=== PATIENT | male | born 1940 | race Caucasian/White ===

== ENCOUNTER 2018-04-18 10:22 | Observation (INO) | payer OTHER ==
--- OUTSIDE RECORDS SUMMARY | 2018-04-18 10:32 | XMS REPORT | Clinical Summary ---
:1940 Author Organization [facility] Address [address] [place] [address] Care Team Providers Name Role Phone Miol Singer MD Primary Care Provider Allergies No Known Allergies Current Medications Prescription Sig. Disp. Refills Start End Date Status Date fluticasone (FLONASE) 50 2 sprays by Active mcg/actuation nasal Each Nare 7 spray route daily. simvastatin (ZOCOR) 20 Take 20 mg Active MG tablet by mouth 7 nightly. ibuprofen (ADVIL,MOTRIN) Take 400 mg Active 200 MG tablet by mouth every 6 (six) hours as needed for mild pain. loratadine (CLARITIN) 10 Take 10 mg Active mg tablet by mouth daily. losartan (COZAAR) 50 MG Take 1 30 tablet 01/17/20 Active tablet tablet (50 8 19 mg total) by mouth daily. metoprolol tartrate Take 1 60 tablet 01/17/20 Active (LOPRESSOR) 50 mg tablet tablet (50 8 19 mg total) by mouth 2 (two) times a day. traMADol (ULTRAM) 50 mg Take 50 mg Active tablet by mouth every 6 (six) hours as needed for moderate pain. hydroCHLOROthiazide Take 1 30 tablet 02/18/20 Active (HYDRODIURIL) 25 MG tablet (25 8 19 tablet mg total) by mouth daily. amLODIPine (NORVASC) 5 Take 5 mg by 01/17/20 Discontinued mg tablet mouth daily. 7 18 carvedilol (COREG) 3.125 12/30/19 Discontinued MG tablet 7 18 clopidogrel (PLAVIX) 75 Take 75 mg 01/17/20 Discontinued mg tablet by mouth 7 18 daily. HYDROcodone-acetaminophe 12/30/19 Discontinued n (NORCO) 5-325 mg per 7 18 tablet metoprolol succinate XL 12/30/19 Discontinued (TOPROL-XL) 50 mg 24 hr 7 18 tablet metoprolol succinate XL Take 100 mg 01/17/20 Discontinued (TOPROL-XL) 100 mg 24 hr by mouth 7 18 tablet daily. losartan-hydrochlorothia Take 1 01/17/20 Discontinued zide (HYZAAR) 100-12.5 tablet by 18 mg per tablet mouth daily. ascorbic acid, vitamin Take 500 mg 01/17/20 Discontinued C, (VITAMIN C) 500 MG by mouth 2 18 tablet (two) times a day. multivitamins & Take by 01/17/20 Discontinued minerals-ferrous mouth daily. 18 gluconate 9 mg iron/15 1 tablet mL liquid daily traMADol (ULTRAM) 50 mg Take 1 30 tablet 0 01/27/20 tablet tablet (50 8 18 mg total) by mouth every 8 (eight) hours as needed for moderate pain for up to 10 days. amIODarone (PACERONE) Take 1 30 tablet 0 02/16/20 200 MG tablet tablet (200 8 18 mg total) by mouth daily for 30 days. hydroCHLOROthiazide Take 1 30 tablet 11 02/18/20 Discontinued (HYDRODIURIL) 25 MG tablet (25 8 18 tablet mg total) by mouth daily. furosemide (LASIX) 40 mg Take 1 14 tablet 0 01/31/20 tablet tablet (40 8 18 mg total) by mouth daily for 14 days. potassium chloride Take 2 28 capsule 0 01/31/20 Discontinued (MICRO-K) 10 MEQ CR capsules (20 8 18 capsule mEq total) by mouth daily for 14 days. 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 Aortic aneurysm without rupture (HCC) 06/28/2017 Essential hypertension 06/28/2017 Encounters Date Type Specialty Care Team Description 02/20/2018 Office Visit Cardiovascular Amadou, s/p Extent I TAAA Gladys Villegas, repair with replacment MD of descending aorta & reimplantation of T8-9 intercostal arteries (Primary Dx) 02/09/2018 Refill Cardiovascular Ines Stiles, PAC 01/30/2018 Office Visit Cardiology Margarette Alicia, s/p 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 & reimplantation of T8-9 intercostal arteries 12/27/2017 Lab Lab Margarette Alicia, Essential hypertension; Thoracic aortic aneurysm without rupture 12/27/2017 Office Visit Cardiology Margarette Alicia, Thoracic aortic aneurysm without rupture (Primary Dx); Essential hypertension 06/28/2017 Office Visit Cardiology Margarette Alicia, Aortic aneurysm without rupture, unspecified portion of aorta (Primary Dx); Essential hypertension after 04/17/2017 Family History Medical History Relation Name Comments Anuerysm Father Heart failure Father Heart failure Mother Relation Name Status Comments Father Mother Social History Tobacco Use Types Packs/Day Years Used Date Never Smoker Smokeless Tobacco: Never Used Alcohol Use Drinks/Week oz/Week Comments Yes 1 Glasses of wine 0.6 Sex Assigned at Date Recorded Not on file Last Filed Vital Signs Vital Sign Reading Time Taken Blood Pressure 170/79 02/20/2018 9:14 AM CDT Pulse 49 02/20/2018 9:14 AM CDT Temperature 37 C (98.6 F) 02/20/2018 9:14 AM CDT Respiratory Rate 18 01/16/2018 7:24 AM CDT Oxygen Saturation 94% 01/16/2018 7:24 AM CDT Inhaled Oxygen Concentration - - Weight 93.4 kg (206 lb) 02/20/2018 9:14 AM CDT Height 177.8 cm (5' 10") 02/20/2018 9:14 AM CDT Body Mass Index 29.56 02/20/2018 9:14 AM CDT Plan of Treatment Date Type Specialty Care Team Description 05/02/2018 Office Visit Cardiology Margarette Alicia MD [address] [place] [address] [phone] 06/20/2018 Office Visit Cardiology Margarette Alicia MD [address] [place] [address] [phone] Health Maintenance Due Date Last Done Comments SHINGRIX VACCINE (#1) 1988 ZOSTER VACCINE 1998 PNEUMOCOCCAL POLYSACCHARIDE VACCINE AGE 65 AND OVER 10/16/2003 PNEUMOCOCCAL-13 10/16/2003 INFLUENZA VACCINE 02/15/2018 Implants Implanted Type Area Territory Sales Representative Device Expiration Model / Identifier Date Serial / Lot Clip [facility] Hemoclip Plus W/ Tape Ti Lg - [id number] Medical N/A: TELEFLEX [id number] / Implanted: 01/04/2018 (Quantity not on file) Clips for N/A MEDICAL / Internal Use 7mm Balloon, 3 Fr X 27 Cm [place] Occlusion Catheter Discontinued Cat#, See New Cat# [id number] Occlusion N/A: [id number] 02/11/2023 [id number] / Implanted: Qty: 3 on 01/04/2018 by Gladys Rosas MD Device N/ A [employer]. / [id number] Haines Perph Vasclr Ptfe 1.2x10cm 1.65mm - [id number] Vascular N/A: BARD PERIPHERAL 10/12/2022 [id number] / Implanted: 01/04/2018 (Quantity not on file) Graft N/A VASCULAR / [id number] Graft Vasclr Gelweave Ante-Jagdish Perfsn Side [id number] 26x8mm - [id number] Vascular N/A: SULZER VASCUTEK 04/16/2022 [id number] / Implanted: 01/04/2018 (Quantity not on file) Graft N/A / [id number] Haines Perph Vasclr Ptfe 1.2x10cm 1.65mm - [id number] Vascular N/A: BARD PERIPHERAL 08/14/2022 [id number] / Implanted: 01/04/2018 (Quantity not on file) Graft N/A VASCULAR / [id number] Procedures Procedure Name Priority Date/Time Associated Diagnosis Comments ECG 12-LEAD Routine 01/30/2018 2:37 Hospital discharge Results for this PM CDT follow-up procedure are in the results section. ZZESTIMATED GFR STAT 01/16/2018 4:29 Results for this AM CDT procedure are in the results section. PHOSPHORUS LEVEL STAT 01/16/2018 4:29 Results for this AM CDT procedure are in the results section. MAGNESIUM LEVEL STAT 01/16/2018 4:29 Results for this AM CDT procedure are in the results section. BASIC METABOLIC PANEL STAT 01/16/2018 4:29 Results for this AM CDT procedure are in the results section. HC COMPLETE BLD COUNT Routine 01/15/2018 7:19 Results for this W/AUTO DIFF AM CDT procedure are in the results section. ZZESTIMATED GFR Routine 01/15/2018 4:00 Results for this AM CDT procedure are in the results section. BASIC METABOLIC PANEL Routine 01/15/2018 4:00 Results for this AM CDT procedure are in the results section. ZZESTIMATED GFR Routine 01/14/2018 4:00 Results for this AM CDT procedure are in the results section. COMPREHENSIVE METABOLIC Routine 01/14/2018 4:00 Results for this PANEL AM CDT procedure are in the results section. PROTHROMBIN TIME WITH Routine 01/14/2018 4:00 Results for this INR AM CDT procedure are in the results section. MAGNESIUM LEVEL Routine 01/14/2018 4:00 Results for this AM CDT procedure are in the results section. IONIZED CALCIUM Routine 01/14/2018 4:00 Results for this AM CDT procedure are in the results section. HC COMPLETE BLD COUNT Routine 01/14/2018 4:00 Results for this W/AUTO DIFF AM CDT procedure are in the results section. ECG 12-LEAD Routine 01/13/2018 2:35 Results for this PM CDT procedure are in the results section. XR CHEST 1 VW PORTABLE Routine 01/13/2018 2:26 Results for this PM CDT procedure are in the results section. ZZESTIMATED GFR Routine 01/13/2018 5:22 Results for this AM CDT procedure are in the results section. PROTHROMBIN TIME WITH Routine 01/13/2018 5:22 Results for this INR AM CDT procedure are in the results section. MAGNESIUM LEVEL Routine 01/13/2018 5:22 Results for this AM CDT procedure are in the results section. IONIZED CALCIUM Routine 01/13/2018 5:22 Results for this AM CDT procedure are in the results section. HC COMPLETE BLD COUNT Routine 01/13/2018 5:22 Results for this W/AUTO DIFF AM CDT procedure are in the results section. BASIC METABOLIC PANEL Routine 01/13/2018 5:22 Results for this AM CDT procedure are in the results section. POC GLUCOSE Routine 01/12/2018 8:33 Results for this PM CDT procedure are in the results section. POC GLUCOSE Routine 01/12/2018 4:52 Results for this PM CDT procedure are in the results section. POC GLUCOSE Routine 01/12/2018 11:38 Results for this AM CDT procedure are in the results section. POC GLUCOSE Routine 01/12/2018 7:26 Results for this AM CDT procedure are in the results section. ZZESTIMATED GFR Routine 01/12/2018 5:45 Results for this AM CDT procedure are in the results section. B NATRIURETIC PEPTIDE Routine 01/12/2018 5:45 Results for this AM CDT procedure are in the results section. PROTHROMBIN TIME WITH Routine 01/12/2018 5:45 Results for this INR AM CDT procedure are in the results section. MAGNESIUM LEVEL Routine 01/12/2018 5:45 Results for this AM CDT procedure are in the results section. IONIZED CALCIUM Routine 01/12/2018 5:45 Results for this AM CDT procedure are in the results section. HC COMPLETE BLD COUNT Routine 01/12/2018 5:45 Results for this W/AUTO DIFF AM CDT procedure are in the results section. BASIC METABOLIC PANEL Routine 01/12/2018 5:45 Results for this AM CDT procedure are in the results section. POC GLUCOSE Routine 01/11/2018 10:25 Results for this PM CDT procedure are in the results section. POC GLUCOSE Routine 01/11/2018 5:33 Results for this PM CDT procedure are in the results section. POC GLUCOSE Routine 01/11/2018 11:55 Results for this AM CDT procedure are in the results section. ZZESTIMATED GFR Routine 01/11/2018 5:30 Results for this AM CDT procedure are in the results section. HC COMPLETE BLD COUNT Routine 01/11/2018 5:30 Results for this W/AUTO DIFF AM CDT procedure are in the results section. PHOSPHORUS LEVEL Routine 01/11/2018 5:30 Results for this AM CDT procedure are in the results section. MAGNESIUM LEVEL Routine 01/11/2018 5:30 Results for this AM CDT procedure are in the results section. BASIC METABOLIC PANEL Routine 01/11/2018 5:30 Results for this AM CDT procedure are in the results section. POC GLUCOSE Routine 01/10/2018 9:29 Results for this PM CDT procedure are in the results section. US CHEST Routine 01/10/2018 6:45 Results for this PM CDT procedure are in the results section. POC GLUCOSE Routine 01/10/2018 4:45 Results for this PM CDT procedure are in the results section. POC GLUCOSE Routine 01/10/2018 11:54 Results for this AM CDT procedure are in the results section. ZZESTIMATED GFR Routine 01/10/2018 4:45 Results for this AM CDT procedure are in the results section. BASIC METABOLIC PANEL Routine 01/10/2018 4:45 Results for this AM CDT procedure are in the results section. B NATRIURETIC PEPTIDE Routine 01/10/2018 4:45 Results for this AM CDT procedure are in the results section. POC GLUCOSE Routine 01/09/2018 9:08 Results for this PM CDT procedure are in the results section. CV ECHO 2D FOLLOW UP OR Routine 01/09/2018 2:54 Results for this LIMITED STUDY PM CDT procedure are in the results section. POC GLUCOSE Routine 01/09/2018 11:53 Results for this AM CDT procedure are in the results section. ECG 12-LEAD Routine 01/09/2018 10:56 Results for this AM CDT procedure are in the results section. POC GLUCOSE Routine 01/09/2018 8:07 Results for this AM CDT procedure are in the results section. XR CHEST 1 VW PORTABLE STAT 01/09/2018 5:45 Results for this AM CDT procedure are in the results section. CBC HEMOGRAM Routine 01/09/2018 3:15 Results for this AM CDT procedure are in the results section. IONIZED CALCIUM Routine 01/09/2018 3:10 Results for this AM CDT procedure are in the results section. PHOSPHORUS LEVEL Routine 01/09/2018 3:10 Results for this AM CDT procedure are in the results section. MAGNESIUM LEVEL Routine 01/09/2018 3:10 Results for this AM CDT procedure are in the results section. ZZESTIMATED GFR Routine 01/09/2018 3:10 Results for this AM CDT procedure are in the results section. BASIC METABOLIC PANEL Routine 01/09/2018 3:10 Results for this AM CDT procedure are in the results section. POC GLUCOSE Routine 01/08/2018 9:21 Results for this PM CDT procedure are in the results section. POC GLUCOSE Routine 01/08/2018 5:29 Results for this PM CDT procedure are in the results section. POC GLUCOSE Routine 01/08/2018 12:10 Results for this PM CDT procedure are in the results section. POC GLUCOSE Routine 01/08/2018 7:30 Results for this AM CDT procedure are in the results section. XR CHEST 1 VW PORTABLE Routine 01/08/2018 5:18 Results for this AM CDT procedure are in the results section. POC GLUCOSE Routine 01/08/2018 4:26 Results for this AM CDT procedure are in the results section. LINE/DRAIN REMOVAL Routine 01/08/2018 4:04 s/p Extent I TAAA Results for this AM CDT repair with procedure are in replacment of the results descending aorta & section. reimplantation of T8-9 intercostal arteries ZZESTIMATED GFR Routine 01/08/2018 4:00 Results for this AM CDT procedure are in the results section. PROTHROMBIN TIME WITH Routine 01/08/2018 4:00 Results for this INR AM CDT procedure are in the results section. PHOSPHORUS LEVEL Routine 01/08/2018 4:00 Results for this AM CDT procedure are in the results section. PARTIAL THROMBOPLASTIN Routine 01/08/2018 4:00 Results for this TIME (PTT) AM CDT procedure are in the results section. MAGNESIUM LEVEL Routine 01/08/2018 4:00 Results for this AM CDT procedure are in the results section. IONIZED CALCIUM Routine 01/08/2018 4:00 Results for this AM CDT procedure are in the results section. CBC HEMOGRAM Routine 01/08/2018 4:00 Results for this AM CDT procedure are in the results section. BASIC METABOLIC PANEL Routine 01/08/2018 4:00 Results for this AM CDT procedure are in the results section. POC GLUCOSE Routine 01/08/2018 12:06 Results for this AM CDT procedure are in the results section. PHOSPHORUS LEVEL Routine 01/07/2018 9:40 Results for this PM CDT procedure are in the results section. MAGNESIUM LEVEL Routine 01/07/2018 9:40 Results for this PM CDT procedure are in the results section. POTASSIUM LEVEL Routine 01/07/2018 9:40 Results for this PM CDT procedure are in the results section. POC GLUCOSE Routine 01/07/2018 7:33 Results for this PM CDT procedure are in the results section. POC GLUCOSE Routine 01/07/2018 4:00 Results for this PM CDT procedure are in the results section. POC GLUCOSE Routine 01/07/2018 11:51 Results for this AM CDT procedure are in the results section. POC GLUCOSE Routine 01/07/2018 7:23 Results for this AM CDT procedure are in the results section. XR CHEST 1 VW PORTABLE STAT 01/07/2018 5:18 Results for this AM CDT procedure are in the results section. POC GLUCOSE Routine 01/07/2018 3:48 Results for this AM CDT procedure are in the results section. TYPE AND SCREEN Routine 01/07/2018 3:00 Results for this AM CDT procedure are in the results section. PROTHROMBIN TIME WITH STAT 01/07/2018 3:00 Results for this INR AM CDT procedure are in the results section. PARTIAL THROMBOPLASTIN STAT 01/07/2018 3:00 Results for this TIME (PTT) AM CDT procedure are in the results section. CBC HEMOGRAM STAT 01/07/2018 3:00 Results for this AM CDT procedure are in the results section. ZZESTIMATED GFR STAT 01/07/2018 2:17 Results for this AM CDT procedure are in the results section. PHOSPHORUS LEVEL STAT 01/07/2018 2:17 Results for this AM CDT procedure are in the results section. MAGNESIUM LEVEL STAT 01/07/2018 2:17 Results for this AM CDT procedure are in the results section. IONIZED CALCIUM STAT 01/07/2018 2:17 Results for this AM CDT procedure are in the results section. BASIC METABOLIC PANEL STAT 01/07/2018 2:17 Results for this AM CDT procedure are in the results section. POC GLUCOSE Routine 01/07/2018 12:11 Results for this AM CDT procedure are in the results section. POC GLUCOSE Routine 01/06/2018 7:53 Results for this PM CDT procedure are in the results section. POC GLUCOSE Routine 01/06/2018 3:44 Results for this PM CDT procedure are in the results section. POC GLUCOSE Routine 01/06/2018 11:22 Results for this AM CDT procedure are in the results section. ECG 12-LEAD STAT 01/06/2018 10:32 Results for this AM CDT procedure are in the results section. PHOSPHORUS LEVEL Routine 01/06/2018 10:15 Results for this AM CDT procedure are in the results section. POTASSIUM LEVEL Routine 01/06/2018 10:15 Results for this AM CDT procedure are in the results section. MAGNESIUM LEVEL Routine 01/06/2018 10:15 Results for this AM CDT procedure are in the results section. POC GLUCOSE Routine 01/06/2018 7:23 Results for this AM CDT procedure are in the results section. ARTERIAL BLOOD GAS STAT 01/06/2018 6:45 Results for this AM CDT procedure are in the results section. ECG 12-LEAD Routine 01/06/2018 5:34 Results for this AM CDT procedure are in the results section. XR CHEST 1 VW PORTABLE Routine 01/06/2018 5:00 Results for this AM CDT procedure are in the results section. POC GLUCOSE Routine 01/06/2018 4:20 Results for this AM CDT procedure are in the results section. ZZESTIMATED GFR Routine 01/06/2018 1:45 Results for this AM CDT procedure are in the results section. PARTIAL THROMBOPLASTIN Routine 01/06/2018 1:45 Results for this TIME (PTT) AM CDT procedure are in the results section. PROTHROMBIN TIME WITH Routine 01/06/2018 1:45 Results for this INR AM CDT procedure are in the results section. IONIZED CALCIUM Routine 01/06/2018 1:45 Results for this AM CDT procedure are in the results section. PHOSPHORUS LEVEL Routine 01/06/2018 1:45 Results for this AM CDT procedure are in the results section. MAGNESIUM LEVEL Routine 01/06/2018 1:45 Results for this AM CDT procedure are in the results section. BASIC METABOLIC PANEL Routine 01/06/2018 1:45 Results for this AM CDT procedure are in the results section. POC GLUCOSE Routine 01/06/2018 1:39 Results for this AM CDT procedure are in the results section. HC COMPLETE BLD COUNT Routine 01/06/2018 1:15 Results for this W/AUTO DIFF AM CDT procedure are in the results section. POC GLUCOSE Routine 01/05/2018 8:17 Results for this PM CDT procedure are in the results section. POC GLUCOSE Routine 01/05/2018 3:44 Results for this PM CDT procedure are in the results section. POC GLUCOSE Routine 01/05/2018 12:15 Results for this PM CDT procedure are in the results section. CT ANGIOGRAM CHEST W WO STAT 01/05/2018 9:40 Results for this CONTRAST AND ABDOMEN W AM CDT procedure are in WO CONTRAST the results section. POC GLUCOSE Routine 01/05/2018 7:34 Results for this AM CDT procedure are in the results section. XR CHEST 1 VW PORTABLE Routine 01/05/2018 4:55 Results for this AM CDT procedure are in the results section. O2 SATURATION, VENOUS Routine 01/05/2018 4:15 Results for this AM CDT procedure are in the results section. POC GLUCOSE Routine 01/05/2018 4:11 Results for this AM CDT procedure are in the results section. ARTERIAL BLOOD GAS Routine 01/05/2018 4:10 Results for this AM CDT procedure are in the results section. ZZESTIMATED GFR Routine 01/05/2018 2:10 Results for this AM CDT procedure are in the results section. IONIZED CALCIUM, Routine 01/05/2018 2:10 Results for this ARTERIAL AM CDT procedure are in the results section. PARTIAL THROMBOPLASTIN Routine 01/05/2018 2:10 Results for this TIME (PTT) AM CDT procedure are in the results section. PROTHROMBIN TIME WITH Routine 01/05/2018 2:10 Results for this INR AM CDT procedure are in the results section. PHOSPHORUS LEVEL Routine 01/05/2018 2:10 Results for this AM CDT procedure are in the results section. MAGNESIUM LEVEL Routine 01/05/2018 2:10 Results for this AM CDT procedure are in the results section. BASIC METABOLIC PANEL Routine 01/05/2018 2:10 Results for this AM CDT procedure are in the results section. HC COMPLETE BLD COUNT Routine 01/05/2018 2:10 Results for this W/AUTO DIFF AM CDT procedure are in the results section. ARTERIAL BLOOD GAS Routine 01/05/2018 2:10 Results for this AM CDT procedure are in the results section. POC GLUCOSE Routine 01/05/2018 12:13 Results for this AM CDT procedure are in the results section. POC GLUCOSE Routine 01/04/2018 11:25 Results for this PM CDT procedure are in the results section. XR CHEST 1 VW PORTABLE Routine 01/04/2018 9:43 Results for this PM CDT procedure are in the results section. ECG 12-LEAD Routine 01/04/2018 9:19 Results for this PM CDT procedure are in the results section. IONIZED CALCIUM, Routine 01/04/2018 8:40 Results for this ARTERIAL PM CDT procedure are in the results section. ZZESTIMATED GFR Routine 01/04/2018 8:40 Results for this PM CDT procedure are in the results section. ARTERIAL BLOOD GAS Routine 01/04/2018 8:40 Results for this PM CDT procedure are in the results section. PARTIAL THROMBOPLASTIN Routine 01/04/2018 8:40 Results for this TIME (PTT) PM CDT procedure are in the results section. PROTHROMBIN TIME WITH Routine 01/04/2018 8:40 Results for this INR PM CDT procedure are in the results section. PHOSPHORUS LEVEL Routine 01/04/2018 8:40 Results for this PM CDT procedure are in the results section. MAGNESIUM LEVEL Routine 01/04/2018 8:40 Results for this PM CDT procedure are in the results section. HC COMPLETE BLD COUNT Routine 01/04/2018 8:40 Results for this W/AUTO DIFF PM CDT procedure are in the results section. BASIC METABOLIC PANEL Routine 01/04/2018 8:40 Results for this PM CDT procedure are in the results section. GLUCOSE LEVEL, SYRINGE STAT 01/04/2018 7:40 Results for this PM CDT procedure are in the results section. IONIZED CALCIUM, STAT 01/04/2018 7:40 Results for this ARTERIAL PM CDT procedure are in the results section. HEMOGLOBIN, SYRINGE STAT 01/04/2018 7:40 Results for this PM CDT procedure are in the results section. POTASSIUM, SYRINGE STAT 01/04/2018 7:40 Results for this PM CDT procedure are in the results section. SODIUM LEVEL, SYRINGE STAT 01/04/2018 7:40 Results for this PM CDT procedure are in the results section. ARTERIAL BLOOD GAS, STAT 01/04/2018 7:40 Results for this CORRECTED PM CDT procedure are in the results section. TRANSFUSE RED BLOOD Routine 01/04/2018 7:04 CELLS PM CDT TRANSFUSE RED BLOOD Routine 01/04/2018 6:43 CELLS PM CDT FIBRINOGEN STAT 01/04/2018 6:31 Results for this PM CDT procedure are in the results section. PROTHROMBIN TIME WITH STAT 01/04/2018 6:31 Results for this INR PM CDT procedure are in the results section. PLATELET COUNT STAT 01/04/2018 6:31 Results for this PM CDT procedure are in the results section. GLUCOSE LEVEL, SYRINGE STAT 01/04/2018 6:31 Results for this PM CDT procedure are in the results section. IONIZED CALCIUM, STAT 01/04/2018 6:31 Results for this ARTERIAL PM CDT procedure are in the results section. HEMOGLOBIN, SYRINGE STAT 01/04/2018 6:31 Results for this PM CDT procedure are in the results section. SODIUM LEVEL, SYRINGE STAT 01/04/2018 6:31 Results for this PM CDT procedure are in the results section. POTASSIUM, SYRINGE STAT 01/04/2018 6:31 Results for this PM CDT procedure are in the results section. ARTERIAL BLOOD GAS, STAT 01/04/2018 6:31 Results for this CORRECTED PM CDT procedure are in the results section. TRANSFUSE Routine 01/04/2018 6:20 CRYOPRECIPITATE PM CDT TRANSFUSE Routine 01/04/2018 6:19 CRYOPRECIPITATE PM CDT TRANSFUSE Routine 01/04/2018 6:17 CRYOPRECIPITATE PM CDT TRANSFUSE Routine 01/04/2018 6:12 CRYOPRECIPITATE PM CDT PLATELET COUNT STAT 01/04/2018 5:36 Results for this PM CDT procedure are in the results section. FIBRINOGEN STAT 01/04/2018 5:36 Results for this PM CDT procedure are in the results section. PROTHROMBIN TIME WITH STAT 01/04/2018 5:36 Results for this INR PM CDT procedure are in the results section. GLUCOSE LEVEL, SYRINGE STAT 01/04/2018 5:36 Results for this PM CDT procedure are in the results section. IONIZED CALCIUM, STAT 01/04/2018 5:36 Results for this ARTERIAL PM CDT procedure are in the results section. HEMOGLOBIN, SYRINGE STAT 01/04/2018 5:36 Results for this PM CDT procedure are in the results section. POTASSIUM, SYRINGE STAT 01/04/2018 5:36 Results for this PM CDT procedure are in the results section. SODIUM LEVEL, SYRINGE STAT 01/04/2018 5:36 Results for this PM CDT procedure are in the results section. ARTERIAL BLOOD GAS, STAT 01/04/2018 5:36 Results for this CORRECTED PM CDT procedure are in the results section. TRANSFUSE FRESH FROZEN Routine 01/04/2018 5:09 PLASMA PM CDT TRANSFUSE FRESH FROZEN Routine 01/04/2018 5:09 PLASMA PM CDT PLATELET COUNT STAT 01/04/2018 5:06 Results for this PM CDT procedure are in the results section. FIBRINOGEN STAT 01/04/2018 5:06 Results for this PM CDT procedure are in the results section. PROTHROMBIN TIME WITH STAT 01/04/2018 5:06 Results for this INR PM CDT procedure are in the results section. GLUCOSE LEVEL, SYRINGE STAT 01/04/2018 5:06 Results for this PM CDT procedure are in the results section. IONIZED CALCIUM, STAT 01/04/2018 5:06 Results for this ARTERIAL PM CDT procedure are in the results section. HEMOGLOBIN, SYRINGE STAT 01/04/2018 5:06 Results for this PM CDT procedure are in the results section. POTASSIUM, SYRINGE STAT 01/04/2018 5:06 Results for this PM CDT procedure are in the results section. SODIUM LEVEL, SYRINGE STAT 01/04/2018 5:06 Results for this PM CDT procedure are in the results section. ARTERIAL BLOOD GAS, STAT 01/04/2018 5:06 Results for this CORRECTED PM CDT procedure are in the results section. TRANSFUSE FRESH FROZEN Routine 01/04/2018 4:56 PLASMA PM CDT TRANSFUSE FRESH FROZEN Routine 01/04/2018 4:54 PLASMA PM CDT TRANSFUSE PLATELETS Routine 01/04/2018 4:48 PM CDT TRANSFUSE PLATELETS Routine 01/04/2018 4:48 PM CDT TRANSFUSE PLATELETS Routine 01/04/2018 4:37 PM CDT TRANSFUSE PLATELETS Routine 01/04/2018 4:36 PM CDT PROTHROMBIN TIME WITH STAT 01/04/2018 4:35 Results for this INR PM CDT procedure are in the results section. PLATELET COUNT STAT 01/04/2018 4:35 Results for this PM CDT procedure are in the results section. FIBRINOGEN STAT 01/04/2018 4:35 Results for this PM CDT procedure are in the results section. GLUCOSE LEVEL, SYRINGE STAT 01/04/2018 4:35 Results for this PM CDT procedure are in the results section. HEMOGLOBIN, SYRINGE STAT 01/04/2018 4:35 Results for this PM CDT procedure are in the results section. IONIZED CALCIUM, STAT 01/04/2018 4:35 Results for this ARTERIAL PM CDT procedure are in the results section. POTASSIUM, SYRINGE STAT 01/04/2018 4:35 Results for this PM CDT procedure are in the results section. SODIUM LEVEL, SYRINGE STAT 01/04/2018 4:35 Results for this PM CDT procedure are in the results section. ARTERIAL BLOOD GAS, STAT 01/04/2018 4:35 Results for this CORRECTED PM CDT procedure are in the results section. TRANSFUSE PLATELETS Routine 01/04/2018 4:31 PM CDT IONIZED CALCIUM, STAT 01/04/2018 4:23 Results for this ARTERIAL PM CDT procedure are in the results section. GLUCOSE LEVEL, SYRINGE STAT 01/04/2018 4:23 Results for this PM CDT procedure are in the results section. HEMOGLOBIN, SYRINGE STAT 01/04/2018 4:23 Results for this PM CDT procedure are in the results section. SODIUM LEVEL, SYRINGE STAT 01/04/2018 4:23 Results for this PM CDT procedure are in the results section. POTASSIUM, SYRINGE STAT 01/04/2018 4:23 Results for this PM CDT procedure are in the results section. ARTERIAL BLOOD GAS, STAT 01/04/2018 4:23 Results for this CORRECTED PM CDT procedure are in the results section. GLUCOSE LEVEL, SYRINGE STAT 01/04/2018 3:42 Results for this PM CDT procedure are in the results section. IONIZED CALCIUM, STAT 01/04/2018 3:42 Results for this ARTERIAL PM CDT procedure are in the results section. HEMOGLOBIN, SYRINGE STAT 01/04/2018 3:42 Results for this PM CDT procedure are in the results section. POTASSIUM, SYRINGE STAT 01/04/2018 3:42 Results for this PM CDT procedure are in the results section. SODIUM LEVEL, SYRINGE STAT 01/04/2018 3:42 Results for this PM CDT procedure are in the results section. ARTERIAL BLOOD GAS, STAT 01/04/2018 3:42 Results for this CORRECTED PM CDT procedure are in the results section. TRANSFUSE FRESH FROZEN Routine 01/04/2018 3:35 PLASMA PM CDT TRANSFUSE RED BLOOD Routine 01/04/2018 3:33 CELLS PM CDT TRANSFUSE FRESH FROZEN Routine 01/04/2018 3:26 PLASMA PM CDT IONIZED CALCIUM, STAT 01/04/2018 3:02 Results for this ARTERIAL PM CDT procedure are in the results section. GLUCOSE LEVEL, SYRINGE STAT 01/04/2018 3:02 Results for this PM CDT procedure are in the results section. HEMOGLOBIN, SYRINGE STAT 01/04/2018 3:02 Results for this PM CDT procedure are in the results section. SODIUM LEVEL, SYRINGE STAT 01/04/2018 3:02 Results for this PM CDT procedure are in the results section. POTASSIUM, SYRINGE STAT 01/04/2018 3:02 Results for this PM CDT procedure are in the results section. ARTERIAL BLOOD GAS, STAT 01/04/2018 3:02 Results for this CORRECTED PM CDT procedure are in the results section. TRANSFUSE RED BLOOD Routine 01/04/2018 2:58 CELLS PM CDT TRANSFUSE PLATELETS Routine 01/04/2018 2:57 PM CDT FIBRINOGEN STAT 01/04/2018 2:47 Results for this PM CDT procedure are in the results section. PROTHROMBIN TIME WITH STAT 01/04/2018 2:47 Results for this INR PM CDT procedure are in the results section. PLATELET COUNT STAT 01/04/2018 2:47 Results for this PM CDT procedure are in the results section. HEMOGLOBIN & HEMATOCRIT STAT 01/04/2018 2:47 Results for this PM CDT procedure are in the results section. TRANSFUSE FRESH FROZEN Routine 01/04/2018 2:37 PLASMA PM CDT TRANSFUSE FRESH FROZEN Routine 01/04/2018 2:37 PLASMA PM CDT GLUCOSE LEVEL, SYRINGE STAT 01/04/2018 2:32 Results for this PM CDT procedure are in the results section. HEMOGLOBIN, SYRINGE STAT 01/04/2018 2:32 Results for this PM CDT procedure are in the results section. IONIZED CALCIUM, STAT 01/04/2018 2:32 Results for this ARTERIAL PM CDT procedure are in the results section. SODIUM LEVEL, SYRINGE STAT 01/04/2018 2:32 Results for this PM CDT procedure are in the results section. POTASSIUM, SYRINGE STAT 01/04/2018 2:32 Results for this PM CDT procedure are in the results section. ARTERIAL BLOOD GAS, STAT 01/04/2018 2:32 Results for this CORRECTED PM CDT procedure are in the results section. TRANSFUSE RED BLOOD Routine 01/04/2018 2:31 CELLS PM CDT GLUCOSE LEVEL, SYRINGE STAT 01/04/2018 2:00 Results for this PM CDT procedure are in the results section. IONIZED CALCIUM, STAT 01/04/2018 2:00 Results for this ARTERIAL PM CDT procedure are in the results section. HEMOGLOBIN, SYRINGE STAT 01/04/2018 2:00 Results for this PM CDT procedure are in the results section. SODIUM LEVEL, SYRINGE STAT 01/04/2018 2:00 Results for this PM CDT procedure are in the results section. POTASSIUM, SYRINGE STAT 01/04/2018 2:00 Results for this PM CDT procedure are in the results section. ARTERIAL BLOOD GAS, STAT 01/04/2018 2:00 Results for this CORRECTED PM CDT procedure are in the results section. IONIZED CALCIUM, STAT 01/04/2018 1:30 Results for this ARTERIAL PM CDT procedure are in the results section. HEMOGLOBIN, SYRINGE STAT 01/04/2018 1:30 Results for this PM CDT procedure are in the results section. GLUCOSE LEVEL, SYRINGE STAT 01/04/2018 1:30 Results for this PM CDT procedure are in the results section. POTASSIUM, SYRINGE STAT 01/04/2018 1:30 Results for this PM CDT procedure are in the results section. SODIUM LEVEL, SYRINGE STAT 01/04/2018 1:30 Results for this PM CDT procedure are in the results section. ARTERIAL BLOOD GAS, STAT 01/04/2018 1:30 Results for this CORRECTED PM CDT procedure are in the results section. SODIUM LEVEL, SYRINGE STAT 01/04/2018 12:16 Results for this PM CDT procedure are in the results section. ARTERIAL BLOOD GAS, STAT 01/04/2018 12:16 Results for this CORRECTED PM CDT procedure are in the results section. POTASSIUM, SYRINGE STAT 01/04/2018 12:16 Results for this PM CDT procedure are in the results section. HEMOGLOBIN, SYRINGE STAT 01/04/2018 12:16 Results for this PM CDT procedure are in the results section. IONIZED CALCIUM, STAT 01/04/2018 12:16 Results for this ARTERIAL PM CDT procedure are in the results section. GLUCOSE LEVEL, SYRINGE STAT 01/04/2018 12:16 Results for this PM CDT procedure are in the results section. GLUCOSE LEVEL, SYRINGE STAT 01/04/2018 12:01 Results for this PM CDT procedure are in the results section. IONIZED CALCIUM, STAT 01/04/2018 12:01 Results for this ARTERIAL PM CDT procedure are in the results section. HEMOGLOBIN, SYRINGE STAT 01/04/2018 12:01 Results for this PM CDT procedure are in the results section. POTASSIUM, SYRINGE STAT 01/04/2018 12:01 Results for this PM CDT procedure are in the results section. SODIUM LEVEL, SYRINGE STAT 01/04/2018 12:01 Results for this PM CDT procedure are in the results section. ARTERIAL BLOOD GAS, STAT 01/04/2018 12:01 Results for this CORRECTED PM CDT procedure are in the results section. SPINAL DRAIN Routine 01/04/2018 11:31 AM CDT Procedure Note - Marlin Boston MD - 01/04/2018 11:31 AM CDT Spinal drain Performed by: MARLIN BOSTON Authorized by: MARLIN BOSTON Staff: Anesthesiologist: MARLIN BOSTON Performed by: Anesthesiologist Preprocedure: patient identified, IV checked, site and side verified, risks and benefits discussed, procedure verified, surgical consent complete, patient position confirmed, monitors and equipment checked and pre-op evaluation complete MSBT: antiseptic used, all elements of maximal sterile barrier technique followed, hand hygiene performed, cap/gown used by other personnel and solutions labeled Procedure Details: Interspace: L2-3 Patient Position: Right lateral decubitus Approach: Midline Needle Type: Tuohy Needle Gauge: 16 G Number of attempts: 3 Post Procedure: Drain placed: Spinal drain insertion successful Coagulation status: Coagulation status reviewed Patient tolerance: Patient tolerated procedure well and no apparent complications Site post procedure: Adhesive bandage applied, pressure dressing applied, site cleaned, lumbar pressure transduced, catheter tip sutured to leur lock and drain attached to lumbar drainage system CSF appearance: Clear ANESTHESIA MACK Routine 01/04/2018 11:30 AM CDT PA CATHETER Routine 01/04/2018 11:30 AM CDT Procedure Note - Marlin Boston MD - 01/04/2018 11:30 AM CDT PA catheter Performed by: MARLIN BOSTON Authorized by: MARLIN BOSTON Patient Location: OR Staff: Anesthesiologist: MARLIN BOSTON Resident/REAL ESTATE PROFESSOR/AA: GULSHAN COREAS Performed by: Resident/REAL ESTATE PROFESSOR/AA Preprocedure: patient identified, IV checked, site and side verified, risks and benefits discussed, procedure verified, surgical consent complete, patient position confirmed, monitors and equipment checked and pre-op evaluation complete MSBT: antiseptic used, all elements of maximal sterile barrier technique followed, hand hygiene performed, cap/gown used by other personnel and solutions labeled Procedure details: PA Catheter Type: TIRE MOUNTER PA Catheter Size: 8 PA Catheter Side: Right PA Catheter Site: Internal jugular PA Catheter secured at: 55 cm PA Catheter placed: PA Catheter placed through a second separate venous access point PA Catheter placed: PA Catheter placed without difficulty Waveform: PA Catheter wave confirmed Echo guided: Echo guided placement Ports flushed: All ports flushed pre-procedure Balloon checked: Balloon checked prior to insertion Post-procedure: No arrhythmia: No arrhythmias noted Patient tolerance: Patient tolerated the procedure well with no immediate complications CENTRAL LINE Routine 01/04/2018 11:29 AM CDT Procedure Note - Marlin Boston MD - 01/04/2018 11:29 AM CDT Central line Performed by: MARLIN BOSTON Authorized by: MARLIN BOSTON Patient Location: OR Staff: Anesthesiologist: MARLIN BOSTON Resident/REAL ESTATE PROFESSOR/AA: GULSHAN COREAS Performed by: Resident/REAL ESTATE PROFESSOR/AA Preprocedure:patient identified, IV checked, site and side verified, risks and benefits discussed, procedure verified, surgical consent complete, patient position confirmed, monitors and equipment checked and pre-op evaluation complete MSBT: antiseptic used during central venous catheter insertion, all elements of maximal sterile barrier technique followed, hand hygiene performed prior to central venous catheter insertion, cap/gown used by other personnel during central venous catheter insertion, solutions labeled and all ports not used during insertion clamped Indications: Indications: Central pressure monitoring and vascular access Anesthesia: Anesthesia: General Procedure details: Patient position: Trendelenburg Catheter Type: Triple lumen Catheter Size: 9 Fr Catheter Site: internal jugular vein Catheter site laterality: Right Ultrasound guidance used: Yes Ultrasound image saved: Yes Pressure transduced: Pressure transduced prior to dilator Number of attempts: 1 Successful placement: Yes Guidewire removal: Guidewire removal is confirmed Guidewire removal witnessed by: MARLIN BOSTON Post-procedure: Post-procedure: line sutured, sterile dressing applied per protocol and ports flushed with saline Post-procedure: Sterile caps on all hubs Assessment: Blood return through all ports and free fluid flow Patient tolerance: Patient tolerated the procedure well with no immediate complications CENTRAL LINE Routine 01/04/2018 11:28 AM CDT Procedure Note - Marlin Boston MD - 01/04/2018 11:28 AM CDT Central line Performed by: MARLIN BOSTON Authorized by: MARLIN BOSTON Patient Location: OR Staff: Anesthesiologist: MARLIN BOSTON Performed by: Anesthesiologist Preprocedure:patient identified, IV checked, site and side verified, risks and benefits discussed, procedure verified, surgical consent complete, patient position confirmed, monitors and equipment checked and pre-op evaluation complete MSBT: antiseptic used during central venous catheter insertion, all elements of maximal sterile barrier technique followed, hand hygiene performed prior to central venous catheter insertion, cap/gown used by other personnel during central venous catheter insertion, solutions labeled and all ports not used during insertion clamped Indications: Indications: Central pressure monitoring and vascular access Anesthesia: Anesthesia: Local infiltration Procedure details: Patient position: Trendelenburg Catheter Type: Double lumen Catheter Size: 8 Fr Catheter Site: internal jugular vein Catheter site laterality: Right Pre-procedure: Landmarks identified Ultrasound guidance used: Yes Ultrasound image saved: Yes Number of attempts: 1 Successful placement: Yes Guidewire removal: Guidewire removal is confirmed Guidewire removal witnessed by: GULSHAN COREAS Post-procedure: Post-procedure: line sutured, sterile dressing applied per protocol and ports flushed with saline Post-procedure: Blood cleaned with CHG and sterile caps on all hubs Assessment: Blood return through all ports and free fluid flow Patient tolerance: Patient tolerated the procedure well with no immediate complications TRANSFUSE RED BLOOD CELLS Routine 01/04/2018 11:22 AM CDT GLUCOSE LEVEL, SYRINGE STAT 01/04/2018 10:15 AM CDT IONIZED CALCIUM, ARTERIAL STAT 01/04/2018 10:15 AM CDT HEMOGLOBIN, SYRINGE STAT 01/04/2018 10:15 AM CDT POTASSIUM, SYRINGE STAT 01/04/2018 10:15 AM CDT SODIUM LEVEL, SYRINGE STAT 01/04/2018 10:15 AM CDT ARTERIAL BLOOD GAS, STAT 01/04/2018 10:15 AM CDT Results for this CORRECTED procedure are in the results section. OR [place] < 1 HOUR Routine 01/04/2018 9:30 AM CDT ARTERIAL LINE Routine 01/04/2018 9:03 AM CDT Procedure Note - Marlin Boston MD - 01/04/2018 9:03 AM CDT Arterial line Performed by: MARLIN BOSTON Authorized by: MARLIN BOSTON Patient Location: OR Staff: Anesthesiologist: MARLIN BOSTON Resident/REAL ESTATE PROFESSOR/AA: GULSHAN COREAS Performed by: Resident/REAL ESTATE PROFESSOR/AA Pre-procedure: patient identified, IV checked, site and side verified, risks and benefits discussed, procedure verified, surgical consent complete, patient position confirmed, monitors and equipment checked and pre-op evaluation complete MSBT: antiseptic used, all elements of maximal sterile barrier technique followed, hand hygiene performed, cap/gown used by other personnel and solutions labeled Indications: Indications: multiple ABGs and hemodynamic monitoring Anesthesia: Anesthesia: Local infiltration Procedure Details: Arterial Line placement: Placed pre-induction Line placement site: Radial Line placement side: Right Arterial line gauge: 20 G Number of attempts: 1 Ultrasound guidance used: No Post-procedure: Post-procedure: Line sutured and sterile dressing applied Post procedure circulation, sensation, movement: Normal Patient tolerance: Patient tolerated the procedure well with no immediate complications ANESTHESIA INTUBATION Routine 01/04/2018 8:49 AM CDT Procedure Note - Marlin Boston MD - 01/04/2018 8:49 AM CDT Airway Performed by: MARLIN BOSTON Authorized by: MARLIN BOSTON Location: OR Difficult Airway: No Anesthesiologist: MARLIN BOSTON Other Anesthesia Staff: JUAN ANTONIO FLORES Performed by: other anesthesia staff Preoxygenated with 100% O2: Yes Mask Ventilation: Easy mask (with oral airway ) Final Airway Type: Endotracheal airway Final Endotracheal Airway: ETT - double lumen left Cuffed: Yes Technique Used: Direct laryngoscopy Devices/Methods Used in Placement: Intubating stylet Insertion Site: Oral Blade Type: Arnie Laryngoscope Blade/Videolaryngoscope Blade Size: 3 ETT Double Lumen (fr): 39 Cuff at minimum occlusion pressure: Yes Placement Verified by: CO2 detection, direct visualization, equal breath sounds and fiber optic visualization Laryngoscopic view: Grade I - full view of glottis Rapid Sequence Induction (RSI): No Modified RSI: No Number of Attempts at Approach: 1 Atraumatic ZZESTIMATED GFR Routine 01/04/2018 4:00 Results for this AM CDT procedure are in the results section. BASIC METABOLIC PANEL Routine 01/04/2018 4:00 Results for this AM CDT procedure are in the results section. HC COMPLETE BLD COUNT Routine 01/04/2018 4:00 Results for this W/AUTO DIFF AM CDT procedure are in the results section. POC GLUCOSE Routine 01/03/2018 5:40 Results for this PM CDT procedure are in the results section. PREPARE CRYOPRECIPITATE Timed 01/03/2018 12:53 Results for this PM CDT procedure are in the results section. PREPARE FRESH FROZEN Timed 01/03/2018 12:53 Results for this PLASMA PM CDT procedure are in the results section. PREPARE PLATELET Timed 01/03/2018 12:53 Results for this PHERESIS PM CDT procedure are in the results section. PREPARE RBC Timed 01/03/2018 12:53 Results for this PM CDT procedure are in the results section. TYPE AND SCREEN Timed 01/03/2018 12:53 Results for this PM CDT procedure are in the results section. POC GLUCOSE Routine 01/03/2018 12:12 Results for this PM CDT procedure are in the results section. POC GLUCOSE Routine 01/03/2018 7:47 Results for this AM CDT procedure are in the results section. ZZESTIMATED GFR Routine 01/03/2018 4:00 Results for this AM CDT procedure are in the results section. HC COMPLETE BLD COUNT Routine 01/03/2018 4:00 Results for this W/AUTO DIFF AM CDT procedure are in the results section. PHOSPHORUS LEVEL Routine 01/03/2018 4:00 Results for this AM CDT procedure are in the results section. IONIZED CALCIUM Routine 01/03/2018 4:00 Results for this AM CDT procedure are in the results section. MAGNESIUM LEVEL Routine 01/03/2018 4:00 Results for this AM CDT procedure are in the results section. BASIC METABOLIC PANEL Routine 01/03/2018 4:00 Results for this AM CDT procedure are in the results section. POC GLUCOSE Routine 01/02/2018 9:16 Results for this PM CDT procedure are in the results section. POC GLUCOSE Routine 01/02/2018 5:19 Results for this PM CDT procedure are in the results section. POC GLUCOSE Routine 01/02/2018 11:26 Results for this AM CDT procedure are in the results section. POC GLUCOSE Routine 01/02/2018 7:57 Results for this AM CDT procedure are in the results section. XR CHEST 1 VW PORTABLE Routine 01/02/2018 5:22 Results for this AM CDT procedure are in the results section. ECG 12-LEAD Routine 01/02/2018 5:14 Results for this AM CDT procedure are in the results section. POC GLUCOSE Routine 01/02/2018 3:49 Results for this AM CDT procedure are in the results section. ZZESTIMATED GFR Routine 01/02/2018 3:37 Results for this AM CDT procedure are in the results section. PHOSPHORUS LEVEL Routine 01/02/2018 3:37 Results for this AM CDT procedure are in the results section. MAGNESIUM LEVEL Routine 01/02/2018 3:37 Results for this AM CDT procedure are in the results section. HC COMPLETE BLD COUNT Routine 01/02/2018 3:37 Results for this W/AUTO DIFF AM CDT procedure are in the results section. BASIC METABOLIC PANEL Routine 01/02/2018 3:37 Results for this AM CDT procedure are in the results section. POC GLUCOSE Routine 01/02/2018 12:07 Results for this AM CDT procedure are in the results section. POC GLUCOSE Routine 01/01/2018 8:03 Results for this PM CDT procedure are in the results section. POC GLUCOSE Routine 01/01/2018 3:54 Results for this PM CDT procedure are in the results section. ZZESTIMATED GFR Routine 01/01/2018 1:03 Results for this PM CDT procedure are in the results section. BASIC METABOLIC PANEL Routine 01/01/2018 1:03 Results for this PM CDT procedure are in the results section. POC GLUCOSE Routine 01/01/2018 11:46 Results for this AM CDT procedure are in the results section. POC GLUCOSE Routine 01/01/2018 7:57 Results for this AM CDT procedure are in the results section. ECG 12-LEAD Routine 01/01/2018 6:55 Results for this AM CDT procedure are in the results section. XR CHEST 1 VW PORTABLE Routine 01/01/2018 5:28 Results for this AM CDT procedure are in the results section. POC GLUCOSE Routine 01/01/2018 3:44 Results for this AM CDT procedure are in the results section. ZZESTIMATED GFR Routine 01/01/2018 12:11 Results for this AM CDT procedure are in the results section. PHOSPHORUS LEVEL Routine 01/01/2018 12:11 Results for this AM CDT procedure are in the results section. MAGNESIUM LEVEL Routine 01/01/2018 12:11 Results for this AM CDT procedure are in the results section. IONIZED CALCIUM Routine 01/01/2018 12:11 Results for this AM CDT procedure are in the results section. HC COMPLETE BLD COUNT Routine 01/01/2018 12:11 Results for this W/AUTO DIFF AM CDT procedure are in the results section. BASIC METABOLIC PANEL Routine 01/01/2018 12:11 Results for this AM CDT procedure are in the results section. POC GLUCOSE Routine 12/31/2017 11:55 Results for this PM CDT procedure are in the results section. POC GLUCOSE Routine 12/31/2017 7:31 Results for this PM CDT procedure are in the results section. POC GLUCOSE Routine 12/31/2017 5:23 Results for this PM CDT procedure are in the results section. POC GLUCOSE Routine 12/31/2017 11:58 Results for this AM CDT procedure are in the results section. CT INSERT Routine 12/31/2017 9:34 Essential Results for this CATH,ART,PERCUT,SHORTTE AM CDT hypertension procedure are in RM the results section. POC GLUCOSE Routine 12/31/2017 8:05 Results for this AM CDT procedure are in the results section. ECG 12-LEAD Routine 12/31/2017 7:27 Results for this AM CDT procedure are in the results section. XR CHEST 1 VW PORTABLE Routine 12/31/2017 6:33 Results for this AM CDT procedure are in the results section. POC GLUCOSE Routine 12/31/2017 4:29 Results for this AM CDT procedure are in the results section. ZZESTIMATED GFR Routine 12/31/2017 3:06 Results for this AM CDT procedure are in the results section. IONIZED CALCIUM Routine 12/31/2017 3:06 Results for this AM CDT procedure are in the results section. PHOSPHORUS LEVEL Routine 12/31/2017 3:06 Results for this AM CDT procedure are in the results section. MAGNESIUM LEVEL Routine 12/31/2017 3:06 Results for this AM CDT procedure are in the results section. BASIC METABOLIC PANEL Routine 12/31/2017 3:06 Results for this AM CDT procedure are in the results section. HC COMPLETE BLD COUNT Routine 12/31/2017 2:40 Results for this W/AUTO DIFF AM CDT procedure are in the results section. POC GLUCOSE Routine 12/31/2017 12:18 Results for this AM CDT procedure are in the results section. POC GLUCOSE Routine 12/30/2017 8:04 Results for this PM CDT procedure are in the results section. ECHOCARDIOGRAM 2D STAT 12/30/2017 6:18 Results for this COMPLETE W MMODE PM CDT procedure are in SPECTRAL COLOR DOPPLER the results (04416) section. POC GLUCOSE Routine 12/30/2017 4:16 Results for this PM CDT procedure are in the results section. CV CTA CHEST (THORACIC Routine 12/30/2017 2:55 Results for this AORTA) W CONTRAST PM CDT procedure are in the results section. XR CHEST 1 VW PORTABLE Routine 12/30/2017 12:56 Results for this PM CDT procedure are in the results section. POC GLUCOSE Routine 12/30/2017 12:28 Results for this PM CDT procedure are in the results section. CT INSERT Routine 12/30/2017 12:13 Dissection of Results for this CATH,ART,PERCUT,SHORTTE PM CDT thoracic aorta procedure are in RM the results section. ECG 12-LEAD Routine 12/30/2017 12:11 Results for this PM CDT procedure are in the results section. HEMOGLOBIN A1C Routine 12/30/2017 11:35 Results for this AM CDT procedure are in the results section. LACTIC ACID LEVEL Routine 12/30/2017 11:25 Results for this AM CDT procedure are in the results section. TYPE AND SCREEN Routine 12/30/2017 11:20 Results for this AM CDT procedure are in the results section. CBC HEMOGRAM Timed 12/30/2017 10:25 Results for this AM CDT procedure are in the results section. PHOSPHORUS LEVEL Routine 12/30/2017 3:40 Results for this AM CDT procedure are in the results section. TROPONIN Routine 12/30/2017 3:40 Results for this AM CDT procedure are in the results section. MAGNESIUM LEVEL Routine 12/30/2017 3:40 Results for this AM CDT procedure are in the results section. ZZESTIMATED GFR Routine 12/30/2017 3:40 Results for this AM CDT procedure are in the results section. BASIC METABOLIC PANEL Routine 12/30/2017 3:40 Results for this AM CDT procedure are in the results section. PARTIAL THROMBOPLASTIN Routine 12/30/2017 3:40 Results for this TIME (PTT) AM CDT procedure are in the results section. PROTHROMBIN TIME WITH Routine 12/30/2017 3:40 Results for this INR AM CDT procedure are in the results section. HC COMPLETE BLD COUNT Routine 12/30/2017 3:40 Results for this W/AUTO DIFF AM CDT procedure are in the results section. TROPONIN Timed 12/29/2017 10:41 Results for this PM CDT procedure are in the results section. ECG ED PRELIMINARY Routine 12/29/2017 3:48 Results for this INTERPRETATION PM CDT procedure are in the results section. CT CRITICAL CARE, E/M Routine 12/29/2017 3:48 Results for this 30-74 MINUTES PM CDT procedure are in the results section. XR CHEST 1 VW PORTABLE STAT 12/29/2017 3:35 Results for this PM CDT procedure are in the results section. B NATRIURETIC PEPTIDE STAT 12/29/2017 3:30 Results for this PM CDT procedure are in the results section. PARTIAL THROMBOPLASTIN STAT 12/29/2017 3:30 Results for this TIME (PTT) PM CDT procedure are in the results section. PROTHROMBIN TIME WITH STAT 12/29/2017 3:30 Results for this INR PM CDT procedure are in the results section. HC COMPLETE BLD COUNT STAT 12/29/2017 3:30 Results for this W/AUTO DIFF PM CDT procedure are in the results section. ZZESTIMATED GFR STAT 12/29/2017 3:08 Results for this PM CDT procedure are in the results section. TROPONIN STAT 12/29/2017 3:08 Results for this PM CDT procedure are in the results section. CREATINE KINASE, TOTAL STAT 12/29/2017 3:08 Results for this (CPK) PM CDT procedure are in the results section. COMPREHENSIVE METABOLIC STAT 12/29/2017 3:08 Results for this PANEL PM CDT procedure are in the results section. ECG 12-LEAD STAT 12/29/2017 2:35 Results for this PM CDT procedure are in the results section. CT ANGIOGRAM CHEST W WO Routine 12/29/2017 11:41 Essential Results for this CONTRAST AM CDT hypertension procedure are in Thoracic aortic the results aneurysm without section. rupture POC CREATININE Routine 12/29/2017 10:47 Results for this AM CDT procedure are in the results section. ESTIMATED GFR Routine 12/29/2017 10:47 Results for this AM CDT procedure are in the results section. COPY RECEIVED FROM: Routine 12/27/2017 12:09 Results for this PM CDT procedure are in the results section. COPY(IES) SENT TO: Routine 12/27/2017 12:09 Results for this PM CDT procedure are in the results section. B NATRIURETIC PEPTIDE Routine 12/27/2017 12:09 Essential Results for this PM CDT hypertension procedure are in Thoracic aortic the results aneurysm without section. rupture ECG 12-LEAD Routine 06/28/2017 2:36 Aortic aneurysm Results for this PM [employer] without rupture, procedure are in unspecified portion the results of aorta section. after 04/17/2017 Results ECG 12 lead (01/30/2018 2:37 PM)Only the most recent of12 resultswithin the time period is included. Ventricular rate 56 [facility] Atrial rate [address] [facility] [address] interval 260 [facility] QRSD interval 148 [facility] QT interval 510 [facility] QTC interval 492 [facility] P axis 1 -11 [facility] MUSE QRS axis 1 264 [facility] MUSE T wave axis 27 [facility] MUSE EKG impression Sinus bradycardia with 1st degree AV block-Right bundle branch block-Inferior infarct (cited on or before 28-JUN-2017)-Abnormal ECG-In automated comparison with ECG of 13-JAN-2018 14:35,-premature atria [facility] MUSE l complexes are no longer present- Performing Organization Address City/[facility] Cent[facility]ode Phone Number [facility] MUSE [address] [place] [phone] Estimated GFR (01/16/2018 4:29 AM)Only the most recent of21 resultswithin the time period is included. GFR Non Af Amer >90 mL/min/1.73 m2 [facility] DEPARTMENT OF PATHOLOGY AND GENOMIC MEDICINE GFR Af Amer >90 mL/min/1.73 m2 [facility] DEPARTMENT OF Comment: PATHOLOGY AND GENOMIC Chronic kidney disease: <60 mL/min/1.73m2 MEDICINE Kidney failure: <15 mL/min/1.73m2 The estimated GFR is calculated from the IDMS-traceable Modification of Diet in Renal Disease Equation. The accuracy of the calculation is poor when the creatinine is normal. Calculated values >90 mL/min/1.73m2 are not reported. This equation has not been validated in children (<18 years), women, the elderly (>70 years), or ethnic groups other than Caucasians and Americans. Specimen Plasma specimen Performing Organization Address [facility] Centercode Phone Number [facility] DEPARTMENT OF PATHOLOGY AND [address] [place] [phone] [facility] Phosphorus level (01/16/2018 4:29 AM)Only the most recent of15 resultswithin the time period is included. Phosphorus 4.0 2.4 - 4.5 mg/dL [facility] DEPARTMENT OF PATHOLOGY AND GENOMIC MEDICINE Specimen Plasma specimen Performing Organization Address City/[facility] Centercode Phone Number [facility] DEPARTMENT OF PATHOLOGY AND [address] [place] [phone] [facility] Magnesium level (01/16/2018 4:29 AM)Only the most recent of18 resultswithin the time period is included. Magnesium 1.9 1.6 - 2.4 mg/dL [facility] DEPARTMENT OF PATHOLOGY AND GENOMIC MEDICINE Specimen Plasma specimen Performing Organization Address City/State/Zipcode Phone Number [facility] PATHOLOGY AND [address] [place] [phone] [facility] Basic metabolic panel (01/16/2018 4:29 AM)Only the most recent of19 resultswithin the time period is included. Sodium 130 (L) 135 - 148 mEq/L [facility] DEPARTMENT OF PATHOLOGY AND GENOMIC MEDICINE Potassium 4.4 3.5 - 5.0 mEq/L [facility] DEPARTMENT OF PATHOLOGY AND GENOMIC MEDICINE Chloride 90 (L) 98 - 112 mEq/L [facility] DEPARTMENT OF PATHOLOGY AND GENOMIC MEDICINE CO2 28 24 - 31 mEq/L [facility] DEPARTMENT OF PATHOLOGY AND GENOMIC MEDICINE Anion gap 12@ANIO 7 - 15 mEq/L [facility] DEPARTMENT OF PATHOLOGY AND GENOMIC MEDICINE BUN 15 8 - 23 mg/dL [facility] DEPARTMENT OF PATHOLOGY AND GENOMIC MEDICINE Creatinine 0.8 0.7 - 1.2 mg/dL [facility] DEPARTMENT OF PATHOLOGY AND GENOMIC MEDICINE Glucose 105 (H) 65 - 99 mg/dL [facility] DEPARTMENT OF PATHOLOGY AND GENOMIC MEDICINE Calcium 8.7 (L) 8.8 - 10.2 mg/dL [facility] DEPARTMENT OF PATHOLOGY AND GENOMIC MEDICINE Specimen Plasma specimen Performing Organization Address City/[facility]/Zipcode Phone Number [facility] PATHOLOGY AND [address] [place] [phone] [facility] CBC with platelet and differential (01/15/2018 7:19 AM)Only the most recent of15 resultswithin the time period is included. WBC 13.60 (H) 4.50 - 11.00 k/uL [facility] DEPARTMENT OF PATHOLOGY AND GENOMIC MEDICINE RBC 3.72 (L) 4.40 - 6.00 m/uL [facility] DEPARTMENT OF PATHOLOGY AND GENOMIC MEDICINE HGB 11.6 (L) 14.0 - 18.0 g/dL [facility] DEPARTMENT OF PATHOLOGY AND GENOMIC MEDICINE HCT 36.0 (L) 41.0 - 51.0 % [facility] DEPARTMENT OF PATHOLOGY AND GENOMIC MEDICINE MCV 96.8 82.0 - 100.0 fL [facility] DEPARTMENT OF PATHOLOGY AND GENOMIC MEDICINE MCH 31.2 27.0 - 34.0 pg [facility] DEPARTMENT OF PATHOLOGY AND GENOMIC MEDICINE MCHC 32.2 31.0 - 37.0 g/dL [facility] DEPARTMENT OF PATHOLOGY AND GENOMIC MEDICINE RDW - SD 49.4 37.0 - 55.0 fL [facility] DEPARTMENT OF PATHOLOGY AND GENOMIC MEDICINE MPV 9.8 8.8 - 13.2 fL [facility] DEPARTMENT OF PATHOLOGY AND GENOMIC MEDICINE Platelet count 420 (H) 150 - 400 k/uL [facility] DEPARTMENT OF PATHOLOGY AND GENOMIC MEDICINE Nucleated RBC 0.10 /100 WBC [facility] DEPARTMENT OF PATHOLOGY AND GENOMIC MEDICINE Neutrophils 76.8 (H) 39.0 - 69.0 % [facility] DEPARTMENT OF PATHOLOGY AND GENOMIC MEDICINE Lymphocytes 6.0 (L) 25.0 - 45.0 % [facility] DEPARTMENT OF PATHOLOGY AND GENOMIC MEDICINE Monocytes 7.9 0.0 - 10.0 % [facility] DEPARTMENT OF PATHOLOGY AND GENOMIC MEDICINE Eosinophils 6.9 (H) 0.0 - 5.0 % [facility] DEPARTMENT OF PATHOLOGY AND GENOMIC MEDICINE Basophils 0.9 0.0 - 1.0 % [facility] DEPARTMENT OF PATHOLOGY AND GENOMIC MEDICINE Immature granulocytes 1.5 (H)Comment: 0.0 - 1.0 % [facility] DEPARTMENT OF "Immature PATHOLOGY AND GENOMIC granulocytes" MEDICINE (promyelocytes, myelocytes, metamyelocytes) Specimen Blood Performing Organization Address City/[facility] Centercode Phone Number [facility] DEPARTMENT OF PATHOLOGY AND [address] [place] [address] Prothrombin time with INR (01/14/2018 4:00 AM)Only the most recent of15 resultswithin the time period is included. Prothrombin time 13.8 12.0 - 15.0 sec [facility] DEPARTMENT OF PATHOLOGY AND GENOMIC MEDICINE INR 1.0 [facility] DEPARTMENT OF Comment: PATHOLOGY AND GENOMIC The International Normalized Ratio (INR) is a therapeutic MEDICINE monitoring tool for patients who are stable on oral anticoagulant therapy. An INR of 2.0-3.0 is suggested for deep vein thrombosis/pulmonary embolism. Specimen Blood Performing Organization Address City/[facility] Centercode Phone Number [facility] DEPARTMENT OF PATHOLOGY AND [address] [place] [address] Ionized calcium (01/14/2018 4:00 AM)Only the most recent of10 resultswithin the time period is included. pH 7.63 [facility] DEPARTMENT OF PATHOLOGY AND GENOMIC MEDICINE Ionized calcium 0.99 (L) 1.11 - 1.32 mmol/L [facility] DEPARTMENT OF PATHOLOGY AND GENOMIC MEDICINE Specimen Plasma specimen Performing Organization Address City/[facility] Centercode Phone Number [facility] DEPARTMENT OF PATHOLOGY AND [address] [place] [address] [facility] Comprehensive metabolic panel (01/14/2018 4:00 AM)Only the most recent of2 resultswithin the time period is included. Sodium 128 (L) 135 - 148 mEq/L [facility] DEPARTMENT OF PATHOLOGY AND GENOMIC MEDICINE Potassium 4.3 3.5 - 5.0 mEq/L [facility] DEPARTMENT OF PATHOLOGY AND GENOMIC MEDICINE Chloride 87 (L) 98 - 112 mEq/L [facility] DEPARTMENT OF PATHOLOGY AND GENOMIC MEDICINE CO2 29 24 - 31 mEq/L [facility] DEPARTMENT OF PATHOLOGY AND GENOMIC MEDICINE Anion gap 12@ANIO 7 - 15 mEq/L [facility] DEPARTMENT OF PATHOLOGY AND GENOMIC MEDICINE BUN 18 8 - 23 mg/dL [facility] DEPARTMENT OF PATHOLOGY AND GENOMIC MEDICINE Creatinine 0.9 0.7 - 1.2 mg/dL [facility] DEPARTMENT OF PATHOLOGY AND GENOMIC MEDICINE Glucose 100 (H) 65 - 99 mg/dL [facility] DEPARTMENT OF PATHOLOGY AND GENOMIC MEDICINE Calcium 9.0 8.8 - 10.2 mg/dL [facility] DEPARTMENT OF PATHOLOGY AND GENOMIC MEDICINE Protein 6.6 6.3 - 8.3 g/dL [facility] DEPARTMENT OF Comment: PATHOLOGY AND GENOMIC [facility] 4.6-7.0 g/dL MEDICINE 1 week 4.4-7.6 g/dL 7 months-1year5.1-7.3 g/dL 1-2 years5.6-7.5 g/dL >3 years6.0-8.0 g/dL 18-150 6.3-8.3 g/dL Albumin 2.9 (L) 3.5 - 5.0 g/dL [facility] DEPARTMENT OF PATHOLOGY AND GENOMIC MEDICINE A/G ratio 0.8 0.7 - 3.8 [facility] DEPARTMENT OF PATHOLOGY AND GENOMIC MEDICINE Alkaline phosphatase 224 (H) 40 - 129 U/L [facility] DEPARTMENT OF PATHOLOGY AND GENOMIC MEDICINE AST 41 10 - 50 U/L [facility] DEPARTMENT OF PATHOLOGY AND GENOMIC MEDICINE ALT 63 (H) 5 - 50 U/L [facility] DEPARTMENT OF PATHOLOGY AND GENOMIC MEDICINE Total bilirubin 1.9 (H) 0.0 - 1.2 mg/dL [facility] DEPARTMENT OF PATHOLOGY AND GENOMIC MEDICINE Specimen Plasma specimen Performing Organization Address City/State/Zipcode Phone Number [facility] DEPARTMENT OF PATHOLOGY AND [address] [place] [address] [facility] XR Chest 1 Vw Portable (01/13/2018 2:26 PM)Only the most recent of12 resultswithin the time period is included. Narrative Performed At EXAMINATION:XR CHEST 1 VW PORTABLE [facility] CLINICAL HISTORY:RALES COMPARISON:January 09, 2018 IMPRESSION: Postoperative changes noted in the left chest.There is continuing cardiomegaly mediastinal widening.Pulmonary vessels are prominent.There some minimal patchy infiltrate at the right lung base medially. There is postoperative opacification at the mid to lower left lung perea with some loculated pleural fluid and atelectasis.There is no pneumothorax.Signed report [id number] Procedure Note Hm Interface, Radiology Results Incoming - 01/13/2018 2:35 PM CDT EXAMINATION: XR CHEST 1 VW PORTABLE CLINICAL HISTORY: RALES COMPARISON: January 09, 2018 IMPRESSION: Postoperative changes noted in the left chest. There is continuing cardiomegaly mediastinal widening. Pulmonary vessels are prominent. There some minimal patchy infiltrate at the right lung base medially. There is postoperative opacification at the mid to lower left lung perea with some loculated pleural fluid and atelectasis. There is no pneumothorax. Signed report [id number] Performing Organization Address [facility] Centercome Phone Number [facility] [address] [place] [address] POC glucose (01/12/2018 8:33 PM)Only the most recent of62 resultswithin the time period is included. POC glucose 112 (H) 65 - 99 mg/dL [facility] DEPARTMENT OF PATHOLOGY Comment: AND GENOMIC MEDICINE [facility] Notified RN Meter ID: [id number] Emergency Medicine: Niharika Treviño Performing Organization Address City/[facility] Centercode Phone Number [facility] DEPARTMENT OF PATHOLOGY AND [address] [place] [address] Saluspot B natriuretic peptide (01/12/2018 5:45 AM)Only the most recent of4 resultswithin the time period is included. BNP 60 0 - 100 pg/mL [facility] DEPARTMENT OF PATHOLOGY AND GENOMIC MEDICINE Specimen Blood Performing Organization Address [facility] Phone Number [facility] DEPARTMENT OF PATHOLOGY AND [address] [place] [address] [facility] MEDICINE US Chest (01/10/2018 6:45 PM) Narrative Performed At Examination: US CHEST [facility] Clinical history: Pleural effusiondiagnosislocalization for thoracentesis Comparison: None Impression: Limited sonographic imaging of the chest demonstrates small bilateral pleural effusions estimated at 228 cc on the right and 32 on the left. [facility]-[id number] Procedure Note Interface, Radiology Results Incoming - 01/10/2018 8:41 PM CDT Examination: US CHEST Clinical history: Pleural effusion diagnosis localization for thoracentesis Comparison: None Impression: Limited sonographic imaging of the chest demonstrates small bilateral pleural effusions estimated at 228 cc on the right and 32 on the left. [facility]-[id number] Performing Organization Address City/State/Zipcode Phone Number [facility] [address] [facility] [place] [address] Echocardiogram 2d limited (01/09/2018 2:54 PM) Narrative Performed At [facility] Echocardiography Report [address] [place] [address] Pat.Name:VERNON KIMBALL Pat.ID:[id number] St.Date: 01/09/2018 Refer.MD:MARGARETTE ALICIA MD Exam Time: 2:38:00 PMStudy Type:Routine Echo Height:70inWeight: 211lb BSA: 2.14 m2 DOBAge:1940,77Y Sex: MALEBP:142/76 HR:72 bpmSonogrphr: ZURI Arreola Pat. Stat.:Inpatient Room:[facility] Study Status:Final Echo Event ID:[id number] Order ID:[id number] Reason for Study:POST OP/ VOLUME OVERLOAD History / Clinical:Hypertension, TIA Procedures:2D Echo,Colorflow Doppler Limited Race:C SUMMARY: Minimal collapse of IVC during inspiration is consistent with elevated RA pressure (10 mmHg). LV filling pressure is elevated. FINDINGS: LV: LV size is normal. LV EF is hyperdynamic. Difficult to assessregional wall motion; however it appears grossly hyperdynamic.Estimated EF is >70%. RV: RV size is difficult to assess. Unable to assess RV systolic function. LA: LA volume is difficult to assess, appears enlarged. RA: RA volume is difficult to assess, appears enlarged. AO: Aortic root diameter is not well visualized. GABINO: No pericardial effusion. SVn:Minimal collapse of IVC during inspiration is consistent withelevated RA pressure (10 mmHg). AV: No structural AV abnormalities noted. MV: Focal calcification of mitral leaflets. PV: Pulmonic valve not well seen. TV: No structural TV abnormalities noted. Mello: LV filling pressure is elevated. Other:Insufficient TR jet to estimate PA systolic pressure. MEASUREMENTS: 2D Parasternal Long [place] Ds3.2 cmLVPWd1 cm LVIDd4.6 cmIndex2.2 cm/m LV Jmcw038.2 g(122-174) LVIDs1.9 cmLVM Index 84.7 g/m2 LV%fs 58.7 % RWT0.4 IVSd 1.2 cm Signed 01/09/2018 06:56 PM Keke Fairchild M.D. Procedure Note Interface, Radiology Results In - 01/09/2018 6:56 PM CDT Echocardiography Report [address] [place] [address] Pat.Name: VERNON KIMBALL Pat.ID: [id number] .Date: 01/09/2018 Refer.MD: MARGARETTE ALICIA MD Exam Time: 2:38:00 PM Study Type:Routine Echo Height: 70in Weight: 211lb BSA: 2.14 m2 Age: 1 1940,77Y Sex: MALE BP: 142/76 HR: 72 bpm Sonogrphr: ZURI Arreola Pat. Stat.:Inpatient Room: [facility] Study Status:Final Echo Event ID:[id number] Order ID: [id number] Reason for Study:POST OP/ VOLUME OVERLOAD History / Clinical:Hypertension, TIA Procedures:2D Echo,Colorflow Doppler Limited Race: C SUMMARY: Minimal collapse of IVC during inspiration is consistent with elevated RA pressure (10 mmHg). LV filling pressure is elevated. FINDINGS: LV: LV size is normal. LV EF is hyperdynamic. Difficult to assess regional wall motion; however it appears grossly hyperdynamic. Estimated EF is >70%. RV: RV size is difficult to assess. Unable to assess RV systolic function. LA: LA volume is difficult to assess, appears enlarged. RA: RA volume is difficult to assess, appears enlarged. AO: Aortic root diameter is not well visualized. GABINO: No pericardial effusion. SVn: Minimal collapse of IVC during inspiration is consistent with elevated RA pressure (10 mmHg). AV: No structural AV abnormalities noted. MV: Focal calcification of mitral leaflets. PV: Pulmonic valve not well seen. TV: No structural TV abnormalities noted. Mello: LV filling pressure is elevated. Other: Insufficient TR jet to estimate PA systolic pressure. MEASUREMENTS: 2D Parasternal Long [place] LA Ds 3.2 cm LVPWd 1 cm LVIDd 4.6 cm Index 2.2 cm/m LV Mass 181.2 g (122-174) LVIDs 1.9 cm LVM Index 84.7 g/m2 LV%fs 58.7 % RWT 0.4 IVSd 1.2 cm Signed 01/09/2018 06:56 PM Keke Fairchild M.D. Performing Organization Address [facility] Centercode Phone Number [facility] [address] [place] [address] CBC hemogram (01/09/2018 3:15 AM)Only the most recent of4 resultswithin the time period is included. WBC 9.90 4.50 - 11.00 k/uL [facility] DEPARTMENT OF PATHOLOGY AND GENOMIC MEDICINE RBC 3.76 (L) 4.40 - 6.00 m/uL [facility] DEPARTMENT OF PATHOLOGY AND GENOMIC MEDICINE HGB 11.7 (L) 14.0 - 18.0 g/dL [facility] DEPARTMENT OF PATHOLOGY AND GENOMIC MEDICINE HCT 36.5 (L) 41.0 - 51.0 % [facility] DEPARTMENT OF PATHOLOGY AND GENOMIC MEDICINE MCV 97.1 82.0 - 100.0 fL [facility] DEPARTMENT OF PATHOLOGY AND GENOMIC MEDICINE MCH 31.1 27.0 - 34.0 pg [facility] DEPARTMENT OF PATHOLOGY AND GENOMIC MEDICINE MCHC 32.1 31.0 - 37.0 g/dL [facility] DEPARTMENT OF PATHOLOGY AND GENOMIC MEDICINE RDW - SD 49.8 37.0 - 55.0 fL [facility] DEPARTMENT OF PATHOLOGY AND GENOMIC MEDICINE MPV 10.6 8.8 - 13.2 fL [facility] DEPARTMENT OF PATHOLOGY AND GENOMIC MEDICINE Platelet count 174 150 - 400 k/uL [facility] DEPARTMENT OF PATHOLOGY AND GENOMIC MEDICINE Nucleated RBC 0.00 /100 WBC [facility] DEPARTMENT OF PATHOLOGY AND GENOMIC MEDICINE Specimen Blood Performing Organization Address City/[facility] [facility] Phone Number [facility] DEPARTMENT OF PATHOLOGY AND [address] [place] [address] GENOMIC MEDICINE Line/Drain Removal (01/08/2018 4:04 AM) Narrative Performed At Maribell Cooper NP 01/08/20184:08 AM Line/Drain Removal Date/Time: 01/08/2018 4:04 AM Performed by: MARIBELL COOPER Authorized by: MARIBELL COOPER Pre-procedure details: Line or drain removed:Chest tube Indication(s) for removal:Treatment completed Patient position:Trendelenburg (R side down) Pre-medication and amount:[id number] mcg Chest Tube Removal: Chest tube removed from suction: Yes Sutures retied: No (Steri-strip applied) Removal procedure: Number of people performing procedure:1 Catheter intact?:Yes Insertion site:No redness, no swelling and no drainage Breath held: Yes Pressure applied to site?: Yes Number of minutes pressure applied:3 Dressing applied::Occlusive, Steri-Strips and 4x4 sterile gauze Estimated blood loss (mL):0 Specimen(s):None Complications:None Patient tolerance of procedure: Patient tolerated the procedure well with no immediate complications Comments: Total 2 CTs were removed from L thoraco site Partial thromboplastin time, activated (01/08/2018 4:00 AM)Only the most recent of7 resultswithin the time period is included. PTT 31.4 23.0 - 36.0 sec [facility] DEPARTMENT OF PATHOLOGY Comment: AND [facility] PTT therapeutic range for unfractionated heparin is 61.0-112.0 seconds which corresponds to Anti-Xa 0.3-0.7 U/ml. Specimen Blood Performing Organization Address City/[facility] Phone Number [facility] DEPARTMENT OF PATHOLOGY AND [address] [place] [address] rag & bone MEDICINE Potassium level (01/07/2018 9:40 PM)Only the most recent of2 resultswithin the time period is included. Potassium 4.0 3.5 - 5.0 mEq/L [facility] DEPARTMENT OF PATHOLOGY AND GENOMIC MEDICINE Specimen Plasma specimen Performing Organization Address City/[facility] Phone Number [facility] DEPARTMENT OF PATHOLOGY AND [address] [place], [place] [phone] GENOMIC MEDICINE Type and screen (01/07/2018 3:00 AM)Only the most recent of3 resultswithin the time period is included. ABO grouping A [facility] DEPARTMENT OF PATHOLOGY AND GENOMIC MEDICINE Rh type POS [facility] DEPARTMENT OF PATHOLOGY AND GENOMIC MEDICINE Antibody screen (gel) NEG [facility] DEPARTMENT OF PATHOLOGY AND GENOMIC MEDICINE Performing Organization Address [facility] Phone Number [facility] DEPARTMENT OF PATHOLOGY AND [address] [place] [phone] [facility] MEDICINE Arterial blood gas (01/06/2018 6:45 AM)Only the most recent of4 resultswithin the time period is included. pH, arterial 7.42 7.35 - 7.45 [facility] DEPARTMENT OF PATHOLOGY AND GENOMIC MEDICINE pCO2, arterial 45 35 - 45 mmHg [facility] DEPARTMENT OF PATHOLOGY AND GENOMIC MEDICINE pO2, arterial 180 (H) 80 - 90 mmHg [facility] DEPARTMENT OF PATHOLOGY AND GENOMIC MEDICINE Bicarbonate, arterial 28.6 (H) 21.0 - 28.0 mmol/L [facility] DEPARTMENT OF PATHOLOGY AND GENOMIC MEDICINE Base excess, arterial 4 (H) -2 - 2 mEq/L [facility] DEPARTMENT OF PATHOLOGY AND [facility] O2 saturation, arterial 99 95 - 100 % [facility] DEPARTMENT OF PATHOLOGY AND GENOMIC MEDICINE Specimen Blood Performing Organization Address City/State/Zipcode Phone Number [facility] DEPARTMENT OF PATHOLOGY AND [address] [place] [address] [facility] CTA Chest W Wo Contrast And Abdomen W Wo Contrast (01/05/2018 9:40 AM) Narrative Performed At EXAMINATION:CT ANGIOGRAM CHEST W WO CONTRAST AND ABDOMEN W WO HM RADIANT CONTRAST CLINICAL HISTORY:Aortic dissection. Concern for intramural hematoma of the ascending thoracic aorta. TECHNIQUE:Multiple CT angiographic images of the chest and abdomen were obtained during intravenous administration of contrast. Multiple computerized reformatted images as well as 3-D volume rendered images were also obtained. CT scans are performed using radiation dose reduction techniques. Technical factors are evaluated and adjusted to ensure appropriate moderation of exposure. Automated dose management technology is applied to adjust radiation exposure while achieving a diagnostic quality image. COMPARISON:CT angiogram chest 12/29/2017 FINDINGS: CHEST: 1.Thyroid:No incidental thyroid lesions. 2. Heart: The heart is normal in size. There are no calcified coronary artery atherosclerotic change.Trace pericardial fluid. 3. Pulmonary Arteries: [place]-Nat catheter tip terminates in the main pulmonary artery proximal to the the bifurcation. 4. Mediastinum: No enlarged mediastinal or hilar lymphadenopathy. No mediastinal mass. Periaortic mediastinal hematoma, related to recent surgical intervention, measures approximately 6.8 x 4.6 cm. 5. Lungs: Bibasilar volume loss. Endotracheal tube terminates in the distal trachea. 6. Pleural: Small left hydropneumothorax. Left-sided chest tube position within the anterior left pleural space. ABDOMEN: 1. Liver: Liver is normal in size and contour. No focal hepatic lesions (for techinque).No intrahepatic biliary ductal dilitation. 2. Gallbladder: Gallbladder is normal in appearance. No extrahepatic biliary ductal dilitation. 3. Spleen: Spleen is normal in size without focal lesion. 4. Pancreas: Diffuse pancreatic atrophy without focal mass lesion or ductal dilatation. 5. Adrenal Glands: The adrenal glands are normal in appearance. 6. Kidneys: Stable left parapelvic cyst. Mild right pelviectasis, unchanged. Perfusion left kidney has improved but still remains mildly patchy. 7. Nodes: No enlarged retroperitoneal or mesenteric lymphadenopathy. 8. Bowel: Gas-filled loops of small bowel are nondilated. The stomach is distended with gas. Nonspecific cecal wall thickening which is eccentric in appearance. Further evaluation with endoscopy in the nonacute setting is recommended. 9. Peritoneum: Minimal abdominal ascites in the perisplenic and perihepatic regions. 10.Retroperitoneum: Psoas muscles are symmetric.No retroperitoneal hemorrhage, fluid collection, or mass lesion. 11. Spinal drain extends from L3-T8. CTA: AORTA: The thoracic aorta is aneurysmal, with measurements as follows: Aortic annulus: 3.1 cm. Sinus of Valsalva: 4.3 cm. Sinotubular junction:3.8 cm. Ascending Thoracic Aorta:4.2 cm. Aortic Arch Proximal the Brachicephalic Origin:3.8 cm. Interval surgical repair of distal thoracic arch and descending thoracic aorta. Mild outpouching along the posterior medial aspect of the graft measures 8 mm (image 91, series 2). Abdominal aorta is aneurysmal with dissection, with measurements as follows: Level of the qamar the diaphragm: 3.9 x 3.6 cm. Level of Celiac artery: 4.0 x 3.3 cm. Level of SMA: 3.1 x3.0 cm. Level of Renal arteries: 2.8 x 2.9 cm. Level of JUDITH: 2.6 x 2.4 cm. Aortic arch has conventional great vessel anatomywithout ostial stenosis. Left vertebral artery arises from the aortic arch. Abdominal aorta has conventional anatomy. Celiac artery:Patent; supplied by the true lumen. SMA: Patent; supplied by the true lumen. Renal Arteries:Patent. Right supplied by the true lumen.Left supplied by both true and false lumen. JUDITH:Patent; supplied by the true lumen. Dissection extends into the right common and external iliac arteries. IMPRESSION: 1. Ascending thoracic aortic aneurysm measuring 4.2 cm. Stable appearance of the ascending thoracic aorta, with periaortic thickening. Noncontrast images were not of obtained, making assessment for an intramural hematoma difficult. 2.Interval repair of descending thoracic aortic aneurysm/dissection. Upper mediastinal hematoma measuring 6.8 cm. No evidence of active contrast extravasation. Small protrusion of the posterior medial aspect of the distal graft measuring 8 mm may be motion artifact versus small pseudoaneurysm. 3. Abdominal aortic aneurysm measuring 4.0 cm with dissection extending into the right common and external iliac arteries. There is now equal flow within the true and false lumen following thoracic aortic aneurysm repair. 4. iImproved perfusion of the left kidney with mild residual patchy parenchymal enhancement. 5. Small left hydropneumothorax with left-sided chest tube. 6. Eccentric Cecal colonic wall thickening. Further evaluation with endoscopy in the nonacute setting is recommended (if not recently performed). [facility]-[id number] Procedure Note Hm Interface, Radiology Results Incoming - 01/05/2018 10:26 AM CDT EXAMINATION: CT ANGIOGRAM CHEST W WO CONTRAST AND ABDOMEN W WO CONTRAST CLINICAL HISTORY: Aortic dissection. Concern for intramural hematoma of the ascending thoracic aorta. TECHNIQUE: Multiple CT angiographic images of the chest and abdomen were obtained during intravenous administration of contrast. Multiple computerized reformatted images as well as 3-D volume rendered images were also obtained. CT scans are performed using radiation dose reduction techniques. Technical factors are evaluated and adjusted to ensure appropriate moderation of exposure. Automated dose management technology is applied to adjust radiation exposure while achieving a diagnostic quality image. COMPARISON: CT angiogram chest 12/29/2017 FINDINGS: CHEST: 1. Thyroid: No incidental thyroid lesions. 2. Heart: The heart is normal in size. There are no calcified coronary artery atherosclerotic change. Trace pericardial fluid. 3. Pulmonary Arteries: [place]-Nat catheter tip terminates in the main pulmonary artery proximal to the the bifurcation. 4. Mediastinum: No enlarged mediastinal or hilar lymphadenopathy. No mediastinal mass. Periaortic mediastinal hematoma, related to recent surgical intervention, measures approximately 6.8 x 4.6 cm. 5. Lungs: Bibasilar volume loss. Endotracheal tube terminates in the distal trachea. 6. Pleural: Small left hydropneumothorax. Left-sided chest tube position within the anterior left pleural space. ABDOMEN: 1. Liver: Liver is normal in size and contour. No focal hepatic lesions (for techinque). No intrahepatic biliary ductal dilitation. 2. Gallbladder: Gallbladder is normal in appearance. No extrahepatic biliary ductal dilitation. 3. Spleen: Spleen is normal in size without focal lesion. 4. Pancreas: Diffuse pancreatic atrophy without focal mass lesion or ductal dilatation. 5. Adrenal Glands: The adrenal glands are normal in appearance. 6. Kidneys: Stable left parapelvic cyst. Mild right pelviectasis, unchanged. Perfusion left kidney has improved but still remains mildly patchy. 7. Nodes: No enlarged retroperitoneal or mesenteric lymphadenopathy. 8. Bowel: Gas-filled loops of small bowel are nondilated. The stomach is distended with gas. Nonspecific cecal wall thickening which is eccentric in appearance. Further evaluation with endoscopy in the nonacute setting is recommended. 9. Peritoneum: Minimal abdominal ascites in the perisplenic and perihepatic regions. 10. Retroperitoneum: Psoas muscles are symmetric. No retroperitoneal hemorrhage, fluid collection, or mass lesion. 11. Spinal drain extends from L3-T8. CTA: AORTA: The thoracic aorta is aneurysmal, with measurements as follows: Aortic annulus: 3.1 cm. Sinus of Valsalva: 4.3 cm. Sinotubular junction: 3.8 cm. Ascending Thoracic Aorta: 4.2 cm. Aortic Arch Proximal the Brachicephalic Origin: 3.8 cm. Interval surgical repair of distal thoracic arch and descending thoracic aorta. Mild outpouching along the posterior medial aspect of the graft measures 8 mm (image 91, series 2). Abdominal aorta is aneurysmal with dissection, with measurements as follows: Level of the qamar the diaphragm: 3.9 x 3.6 cm. Level of Celiac artery: 4.0 x 3.3 cm. Level of SMA: 3.1 x3.0 cm. Level of Renal arteries: 2.8 x 2.9 cm. Level of JUDITH: 2.6 x 2.4 cm. Aortic arch has conventional great vessel anatomy without ostial stenosis. Left vertebral artery arises from the aortic arch. Abdominal aorta has conventional anatomy. Celiac artery:Patent; supplied by the true lumen. SMA: Patent; supplied by the true lumen. Renal Arteries:Patent. Right supplied by the true lumen. Left supplied by both true and false lumen. JUDITH:Patent; supplied by the true lumen. Dissection extends into the right common and external iliac arteries. IMPRESSION: 1. Ascending thoracic aortic aneurysm measuring 4.2 cm. Stable appearance of the ascending thoracic aorta, with periaortic thickening. Noncontrast images were not of obtained, making assessment for an intramural hematoma difficult. 2. Interval repair of descending thoracic aortic aneurysm/dissection. Upper mediastinal hematoma measuring 6.8 cm. No evidence of active contrast extravasation. Small protrusion of the posterior medial aspect of the distal graft measuring 8 mm may be motion artifact versus small pseudoaneurysm. 3. Abdominal aortic aneurysm measuring 4.0 cm with dissection extending into the right common and external iliac arteries. There is now equal flow within the true and false lumen following thoracic aortic aneurysm repair. 4. iImproved perfusion of the left kidney with mild residual patchy parenchymal enhancement. 5. Small left hydropneumothorax with left-sided chest tube. 6. Eccentric Cecal colonic wall thickening. Further evaluation with endoscopy in the nonacute setting is recommended (if not recently performed). [facility]-[id number] Performing Organization Address [facility]/Zipcode Phone Number [address] [address] O2 saturation, venous (01/05/2018 4:15 AM) Hemoglobin, venous, syringe 9.8 (L) 14.0 - 18.0 g/dL [facility] DEPARTMENT OF PATHOLOGY AND GENOMIC MEDICINE O2 saturation, venous 71 (H) 40 - 70 % [facility] DEPARTMENT OF PATHOLOGY AND GENOMIC MEDICINE Specimen Blood Performing Organization Address [facility] Phone Number [facility] DEPARTMENT PATHOLOGY AND [address] [place], [place] [phone] [facility] Ionized calcium, arterial (01/05/2018 2:10 AM)Only the most recent of16 resultswithin the time period is included. Ionized calcium, arterial 1.27 1.11 - 1.32 mmol/L [facility] DEPARTMENT OF PATHOLOGY AND GENOMIC MEDICINE Specimen Blood Performing Organization Address [facility] Phone Number [facility] DEPARTMENT OF PATHOLOGY AND [address] [place] [phone] GENOMIC MEDICINE Sodium level, syringe (01/04/2018 7:40 PM)Only the most recent of14 resultswithin the time period is included. Sodium, syringe 137 135 - 148 mEq/L [facility] DEPARTMENT OF PATHOLOGY AND GENOMIC MEDICINE Specimen Blood Performing Organization Address [facility] Phone Number [facility] DEPARTMENT OF PATHOLOGY AND [address] [place] [phone] GENOMIC MEDICINE Potassium, syringe (01/04/2018 7:40 PM)Only the most recent of14 resultswithin the time period is included. Potassium, syringe 4.4 3.5 - 5.0 mEq/L [facility] DEPARTMENT OF PATHOLOGY AND GENOMIC MEDICINE Specimen Blood Performing Organization Address City/[facility] Phone Number [facility] DEPARTMENT OF PATHOLOGY AND [address] [place] [address] Hemoglobin, syringe (01/04/2018 7:40 PM)Only the most recent of14 resultswithin the time period is included. Hemoglobin, syringe 10.0 (L) 14.0 - 18.0 g/dL [facility] DEPARTMENT OF PATHOLOGY AND GENOMIC MEDICINE Specimen Blood Performing Organization Address [facility] Phone Number [facility] DEPARTMENT OF PATHOLOGY AND [address] [place] [address] Glucose level, syringe (01/04/2018 7:40 PM)Only the most recent of14 resultswithin the time period is included. Glucose, syringe 132 (H) 65 - 99 mg/dL [facility] DEPARTMENT OF PATHOLOGY AND GENOMIC MEDICINE Specimen Blood Performing Organization Address [facility] Phone Number [facility] DEPARTMENT OF PATHOLOGY AND [address] [place] [address] Arterial blood gas, corrected (01/04/2018 7:40 PM)Only the most recent of14 resultswithin the time period is included. pH, arterial 7.35 7.35 - 7.45 [facility] DEPARTMENT OF PATHOLOGY AND GENOMIC MEDICINE pCO2, arterial 49 (H) 35 - 45 mmHg [facility] DEPARTMENT OF PATHOLOGY AND GENOMIC MEDICINE pO2, arterial 244 (H) 80 - 90 mmHg [facility] DEPARTMENT OF PATHOLOGY AND GENOMIC MEDICINE Temperature, Celsius 37.0 Degrees C [facility] DEPARTMENT OF PATHOLOGY AND GENOMIC MEDICINE O2 saturation, arterial 100 95 - 100 % [facility] DEPARTMENT OF PATHOLOGY AND GENOMIC MEDICINE pH, arterial corrected 7.35 [facility] DEPARTMENT OF PATHOLOGY AND GENOMIC MEDICINE pCO2, arterial corrected 49 mmHg [facility] DEPARTMENT OF PATHOLOGY AND GENOMIC MEDICINE pO2, arterial corrected 244 mmHg [facility] DEPARTMENT OF PATHOLOGY AND GENOMIC MEDICINE Base excess, arterial 1 -2 - 2 mEq/L [facility] DEPARTMENT OF PATHOLOGY AND GENOMIC MEDICINE Specimen Blood Performing Organization Address [facility] Phone Number [facility] DEPARTMENT OF PATHOLOGY AND [address] [place] [address] Fibrinogen (01/04/2018 6:31 PM)Only the most recent of5 resultswithin the time period is included. Fibrinogen 399 200 - 450 mg/dL [facility] DEPARTMENT OF PATHOLOGY AND [facility] Specimen Blood Performing Organization Address City/[facility] Phone Number [facility] DEPARTMENT OF PATHOLOGY AND [address] [place] [address] Platelet count (01/04/2018 6:31 PM)Only the most recent of5 resultswithin the time period is included. Platelet count 185 150 - 400 k/uL [facility] DEPARTMENT OF PATHOLOGY AND GENOMIC MEDICINE Performing Organization Address City/[facility] Phone Number [facility] DEPARTMENT OF PATHOLOGY AND [address] [place] [address] Hemoglobin & hematocrit (01/04/2018 2:47 PM) HGB 10.2 (L)Comment: Results 14.0 - 18.0 g/dL [facility] DEPARTMENT OF PATHOLOGY double-checked. PATIENT IN AND [facility] MEDICINE SURGERY HCT 29.9 (L) 41.0 - 51.0 % [facility] DEPARTMENT OF PATHOLOGY AND GENOMIC MEDICINE Performing Organization Address [facility] Phone Number [facility] DEPARTMENT OF PATHOLOGY AND [address] [place] [address] ANESTHESIA MACK (01/04/2018 11:30 AM) Narrative Performed At Marlin Boston MD 01/05/20189:15 AM Procedure Performed: MACK Start Time: End Time: Preanesthesia Checklist: Patient identified, IV assessed, risks and benefits discussed, monitors and equipment assessed, procedure being performed at surgeon's request, anesthesia consent obtained. General Procedure Information Diagnostic Indications for Echo:assessment of surgical repair and hemodynamic monitoring Physician Requesting Echo: GLADYS ROSAS Location performed:OR Intubated Bite block not placed Heart visualized Probe Insertion:Easy Probe Type:Multiplane Echocardiographic and Doppler Measurements Ventricles Right Ventricle: Cavity size normal.Hypertrophy not present.Thrombus not present. Global function normal. Left Ventricle: Cavity size normal.Thrombus not present.Global Function normal. Valves Aortic Valve: Annulus normal.Stenosis not present.Regurgitation +1.Leaflets normal.Leaflet motions normal. Mitral Valve: Annulus normal.Stenosis not present.Regurgitation +1.Leaflets normal.Leaflet motions normal. Tricuspid Valve: Annulus normal.Stenosis not present.Leaflets normal. Aorta Ascending Aorta: Size dilated.Dissection not present.Plaque thickness less than 3 mm. Mobile plaque not present. Aortic Arch: Size dilated.Dissection not present.Plaque thickness less than 3 mm. Mobile plaque not present. Descending Aorta: Size aneurysmal.Dissection present.Plaque thickness less than 3 mm. Mobile plaque not present. Atria Right Atrium: Size normal. Left Atrium: Size normal.Left atrial appendage normal. Septa Atrial Septum: Intra-atrial septal morphology lipomatous hypertrophy. Other Findings Pericardium:normal Pleural Effusion:none Pulmonary Arteries:normal Pulmonary Venous Flow:normal Anesthesia Information Performed with residents Anesthesiologist:MARLIN BOSTON Resident/REAL ESTATE PROFESSOR/AA:GULSHAN COREAS Echocardiogram Comments: Pre procedure: Normal LV size and function, no rwma, moderate LVH. Normal RV size and function. Trileaflet AV. No , mild central AI. AV annulus 27 mm.MV mildly sclerosed, Mild MR, no restriction of leaflet motion. Trace TR. Ao: Dilated ascending aorta, 3.4 cm above STJ to 3.99 cm at level of PA. Large descending aortic aneurysm with dissection flap present (4.16 cm). Sluggish flow present in false lumen (as evidenced by SEC). Dissection and aneurysm extend from distal aortic arch down through entire visible portion of the descending aorta. No pc or pl effusion seen. Post CPB MACK: S/p thoracoabdominal aneurysm repair with DHCA (please see quick notes regarding echo guidance during separation from CPB:: LV function preserved with no wall motion abnormalities (after a period of inotropic support). RV function preserved. No changes to atria or LALO. No changes to valves (Mild AI and mild MR remain). Suspected Intramural hematoma vs edema present around level of ascending aorta originating just distal to the root andbelow PA,0.6 cm in width and 3.6 cm in length along aorta. No dissection flap seen in ascending aorta. Hematoma unchanged prior to probe removal before leaving OR. No pleural effusion or pericardial effusion present just before leaving OR. Bilateral lung recruitment maneuvers under echo guidance. Marlin Boston MD Procedure Note Marlin Boston MD - 01/04/2018 11:30 AM CDT Procedure Performed: MACK Start Time: End Time: Preanesthesia Checklist: Patient identified, IV assessed, risks and benefits discussed, monitors and equipment assessed, procedure being performed at surgeon's request, anesthesia consent obtained. General Procedure Information Diagnostic Indications for Echo: assessment of surgical repair and hemodynamic monitoring Physician Requesting Echo: GLADYS ROSAS Location performed: OR Intubated Bite block not placed Heart visualized Probe Insertion: Easy Probe Type: Multiplane Echocardiographic and Doppler Measurements Ventricles Right Ventricle: Cavity size normal. Hypertrophy not present. Thrombus not present. Global function normal. Left Ventricle: Cavity size normal. Thrombus not present. Global Function normal. Valves Aortic Valve: Annulus normal. Stenosis not present. Regurgitation +1. Leaflets normal. Leaflet motions normal. Mitral Valve: Annulus normal. Stenosis not present. Regurgitation +1. Leaflets normal. Leaflet motions normal. Tricuspid Valve: Annulus normal. Stenosis not present. Leaflets normal. Aorta Ascending Aorta: Size dilated. Dissection not present. Plaque thickness less than 3 mm. Mobile plaque not present. Aortic Arch: Size dilated. Dissection not present. Plaque thickness less than 3 mm. Mobile plaque not present. Descending Aorta: Size aneurysmal. Dissection present. Plaque thickness less than 3 mm. Mobile plaque not present. Atria Right Atrium: Size normal. Left Atrium: Size normal. Left atrial appendage normal. Septa Atrial Septum: Intra-atrial septal morphology lipomatous hypertrophy. Other Findings Pericardium: normal Pleural Effusion: none Pulmonary Arteries: normal Pulmonary Venous Flow: normal Anesthesia Information Performed with residents Anesthesiologist: MARLIN BOSTON Resident/REAL ESTATE PROFESSOR/AA: GULSHAN COREAS Echocardiogram Comments: Pre procedure: Normal LV size and function, no rwma, moderate LVH. Normal RV size and function. Trileaflet AV. No , mild central AI. AV annulus 27 mm. MV mildly sclerosed, Mild MR, no restriction of leaflet motion. Trace TR. Ao: Dilated ascending aorta, 3.4 cm above STJ to 3.99 cm at level of PA. Large descending aortic aneurysm with dissection flap present (4.16 cm). Sluggish flow present in false lumen (as evidenced by SEC). Dissection and aneurysm extend from distal aortic arch down through entire visible portion of the descending aorta. No pc or pl effusion seen. Post CPB MACK: S/p thoracoabdominal aneurysm repair with DHCA (please see quick notes regarding echo guidance during separation from CPB:: LV function preserved with no wall motion abnormalities (after a period of inotropic support). RV function preserved. No changes to atria or LALO. No changes to valves (Mild AI and mild MR remain). Suspected Intramural hematoma vs edema present around level of ascending aorta originating just distal to the root and below PA, 0.6 cm in width and 3.6 cm in length along aorta. No dissection flap seen in ascending aorta. Hematoma unchanged prior to probe removal before leaving OR. No pleural effusion or pericardial effusion present just before leaving OR. Bilateral lung recruitment maneuvers under echo guidance. Marlin Boston MD OR [place] < 1 Hour (01/04/2018 9:30 AM) Narrative Performed At IMPRESSION: C-arm fluoroscopy under one hour was provided in the OR for RADIANT the referring physician. A radiologist was not present during the procedure. Refer to the Operative report issued by the performing provider for procedure details. LOCATION: [facility] PROCEDURE: Spinal Drain Insertion START TIME: 829 FINISH TIME: 929 FLUORO TIME: :40 DOSE (mGy): 19.5 TECH(S): AB Procedure Note Interface, Radiology Results Incoming - 01/04/2018 11:45 AM CDT IMPRESSION: C-arm fluoroscopy under one hour was provided in the OR for the referring physician. A radiologist was not present during the procedure. Refer to the Operative report issued by the performing provider for procedure details. LOCATION: [facility] PROCEDURE: Spinal Drain Insertion START TIME: 829 FINISH TIME: 30 FLUORO TIME: :40 DOSE (mGy): 19.5 TECH(S): AB Performing Organization Address City/State/Zipcode Phone Number [facility] [address] [place] [address] Prepare platelet pheresis, 2 Units (01/03/2018 12:53 PM) Product name Apheresis Platelet ACDA [facility] DEPARTMENT OF LRIRR #1 PATHOLOGY AND GENOMIC MEDICINE Unit number [id number] [facility] DEPARTMENT OF PATHOLOGY AND GENOMIC MEDICINE Product code [id number] [facility] DEPARTMENT OF PATHOLOGY AND GENOMIC MEDICINE Dispense status Transfused [facility] DEPARTMENT OF PATHOLOGY AND GENOMIC MEDICINE Blood expiration date [facility] DEPARTMENT OF PATHOLOGY AND GENOMIC MEDICINE Blood type code 7300 [facility] DEPARTMENT OF PATHOLOGY AND GENOMIC MEDICINE Blood type B POSITIVE [facility] DEPARTMENT OF PATHOLOGY AND GENOMIC MEDICINE Product name Apheresis Platelet ACDA [facility] DEPARTMENT OF LRIRR #1 PATHOLOGY AND GENOMIC MEDICINE Unit number [id number] [facility] DEPARTMENT OF PATHOLOGY AND GENOMIC MEDICINE Product code [id number] [facility] DEPARTMENT OF PATHOLOGY AND GENOMIC MEDICINE Dispense status Transfused [facility] DEPARTMENT OF PATHOLOGY AND GENOMIC MEDICINE Blood expiration date [facility] DEPARTMENT OF PATHOLOGY AND GENOMIC MEDICINE Blood type code 7300 [facility] DEPARTMENT OF PATHOLOGY AND GENOMIC MEDICINE Blood type B POSITIVE [facility] DEPARTMENT OF PATHOLOGY AND GENOMIC MEDICINE Product name Apheresis PLT, Leukored IRR [facility] DEPARTMENT OF #2 PATHOLOGY AND GENOMIC MEDICINE Unit number [id number] [facility] DEPARTMENT OF PATHOLOGY AND GENOMIC MEDICINE Product code [id number] [facility] DEPARTMENT OF PATHOLOGY AND GENOMIC MEDICINE Dispense status Transfused [facility] DEPARTMENT OF PATHOLOGY AND GENOMIC MEDICINE Blood expiration date [facility] DEPARTMENT OF PATHOLOGY AND GENOMIC MEDICINE Blood type code 5100 [facility] DEPARTMENT OF PATHOLOGY AND GENOMIC MEDICINE Blood type O POSITIVE [facility] DEPARTMENT OF PATHOLOGY AND GENOMIC MEDICINE Product name Apheresis PLT, Leukored IRR [facility] DEPARTMENT OF #2 PATHOLOGY AND GENOMIC MEDICINE Unit number [id number] [facility] DEPARTMENT OF PATHOLOGY AND GENOMIC MEDICINE Product code [id number] [facility] DEPARTMENT OF PATHOLOGY AND GENOMIC MEDICINE Dispense status Transfused [facility] DEPARTMENT OF PATHOLOGY AND GENOMIC MEDICINE Blood expiration date [facility] DEPARTMENT OF PATHOLOGY AND GENOMIC MEDICINE Blood type code 6200 [facility] DEPARTMENT OF PATHOLOGY AND GENOMIC MEDICINE Blood type A POSITIVE [facility] DEPARTMENT OF PATHOLOGY AND GENOMIC MEDICINE Product name Apheresis PLT, Leukored IRR [facility] DEPARTMENT OF #2 PATHOLOGY AND GENOMIC MEDICINE Unit number [id number] [facility] DEPARTMENT OF PATHOLOGY AND GENOMIC MEDICINE Product code [id number] [facility] DEPARTMENT OF PATHOLOGY AND GENOMIC MEDICINE Dispense status Transfused [facility] DEPARTMENT OF PATHOLOGY AND GENOMIC MEDICINE Blood expiration date [facility] DEPARTMENT OF PATHOLOGY AND GENOMIC MEDICINE Blood type code 5100 [facility] DEPARTMENT OF PATHOLOGY AND GENOMIC MEDICINE Blood type O POSITIVE [facility] DEPARTMENT OF PATHOLOGY AND GENOMIC MEDICINE Product name Apheresis PLT Leukored IRR [facility] DEPARTMENT OF #3 PATHOLOGY AND GENOMIC MEDICINE Unit number [id number] [facility] DEPARTMENT OF PATHOLOGY AND GENOMIC MEDICINE Product code [id number] [facility] DEPARTMENT OF PATHOLOGY AND GENOMIC MEDICINE Dispense status Transfused [facility] DEPARTMENT OF PATHOLOGY AND GENOMIC MEDICINE Blood expiration date [facility] DEPARTMENT OF PATHOLOGY AND GENOMIC MEDICINE Blood type code 5100 [facility] DEPARTMENT OF PATHOLOGY AND GENOMIC MEDICINE Blood type O POSITIVE [facility] DEPARTMENT OF PATHOLOGY AND GENOMIC MEDICINE Product name Apheresis PLT, Leukored IRR [facility] DEPARTMENT OF #2 PATHOLOGY AND GENOMIC MEDICINE Unit number [id number] [facility] DEPARTMENT OF PATHOLOGY AND GENOMIC MEDICINE Product code [id number] [facility] DEPARTMENT OF PATHOLOGY AND GENOMIC MEDICINE Dispense status Returned to BB not [facility] DEPARTMENT OF transfused PATHOLOGY AND GENOMIC MEDICINE Blood expiration date [facility] DEPARTMENT OF PATHOLOGY AND GENOMIC MEDICINE Blood type code 8400 [facility] DEPARTMENT OF PATHOLOGY AND GENOMIC MEDICINE Blood type AB POSITIVE [facility] DEPARTMENT OF PATHOLOGY AND GENOMIC MEDICINE Product name Apheresis PLT Leukored IRR [facility] DEPARTMENT OF #3 PATHOLOGY AND GENOMIC MEDICINE Unit number [id number] [facility] DEPARTMENT OF PATHOLOGY AND GENOMIC MEDICINE Product code [id number] [facility] DEPARTMENT OF PATHOLOGY AND GENOMIC MEDICINE Dispense status Returned to BB not [facility] DEPARTMENT OF transfused PATHOLOGY AND GENOMIC MEDICINE Blood expiration date [facility] DEPARTMENT OF PATHOLOGY AND GENOMIC MEDICINE Blood type code 6200 [facility] DEPARTMENT OF PATHOLOGY AND GENOMIC MEDICINE Blood type A POSITIVE [facility] DEPARTMENT OF PATHOLOGY AND GENOMIC MEDICINE Product name Apheresis PLT, Leukored IRR [facility] DEPARTMENT OF #2 PATHOLOGY AND GENOMIC MEDICINE Unit number [id number] [facility] DEPARTMENT OF PATHOLOGY AND GENOMIC MEDICINE Product code [id number] [facility] DEPARTMENT OF PATHOLOGY AND GENOMIC MEDICINE Dispense status Returned to BB not [facility] DEPARTMENT OF transfused PATHOLOGY AND GENOMIC MEDICINE Blood expiration date [facility] DEPARTMENT OF PATHOLOGY AND GENOMIC MEDICINE Blood type code 6200 [facility] DEPARTMENT OF PATHOLOGY AND GENOMIC MEDICINE Blood type A POSITIVE [facility] DEPARTMENT OF PATHOLOGY AND GENOMIC MEDICINE Product name Apheresis Platelet ACDA [facility] DEPARTMENT OF LRIRR #1 PATHOLOGY AND GENOMIC MEDICINE Unit number [id number] [facility] DEPARTMENT OF PATHOLOGY AND GENOMIC MEDICINE Product code [id number] [facility] DEPARTMENT OF PATHOLOGY AND GENOMIC MEDICINE Dispense status Returned to BB not [facility] DEPARTMENT OF transfused PATHOLOGY AND GENOMIC MEDICINE Blood expiration date [facility] DEPARTMENT OF PATHOLOGY AND GENOMIC MEDICINE Blood type code 0600 [facility] DEPARTMENT OF PATHOLOGY AND GENOMIC MEDICINE Blood type A NEGATIVE [facility] DEPARTMENT OF PATHOLOGY AND GENOMIC MEDICINE Performing Organization Address City/State/Zipcode Phone Number [facility] DEPARTMENT OF PATHOLOGY AND [address] [place] [phone] [place] Prepare fresh frozen plasma, 1 Units (01/03/2018 12:53 PM) Product name Thawed Plasma [facility] DEPARTMENT OF PATHOLOGY AND GENOMIC MEDICINE Unit number [id number] [facility] DEPARTMENT OF PATHOLOGY AND GENOMIC MEDICINE Product code [id number] [facility] DEPARTMENT OF PATHOLOGY AND GENOMIC MEDICINE Dispense status Transfused [facility] DEPARTMENT OF PATHOLOGY AND GENOMIC MEDICINE Blood expiration date [facility] DEPARTMENT OF PATHOLOGY AND GENOMIC MEDICINE Blood type code 6200 [facility] DEPARTMENT OF PATHOLOGY AND GENOMIC MEDICINE Blood type A POSITIVE [facility] DEPARTMENT OF PATHOLOGY AND GENOMIC MEDICINE Product name Thawed Plasma [facility] DEPARTMENT OF PATHOLOGY AND GENOMIC MEDICINE Unit number [id number] [facility] DEPARTMENT OF PATHOLOGY AND GENOMIC MEDICINE Product code [id number] [facility] DEPARTMENT OF PATHOLOGY AND GENOMIC MEDICINE Dispense status Transfused [facility] DEPARTMENT OF PATHOLOGY AND GENOMIC MEDICINE Blood expiration date [facility] DEPARTMENT OF PATHOLOGY AND GENOMIC MEDICINE Blood type code 6200 [facility] DEPARTMENT OF PATHOLOGY AND GENOMIC MEDICINE Blood type A POSITIVE [facility] DEPARTMENT OF PATHOLOGY AND GENOMIC MEDICINE Product name Thawed Plasma [facility] DEPARTMENT OF PATHOLOGY AND GENOMIC MEDICINE Unit number [id number] [facility] DEPARTMENT OF PATHOLOGY AND GENOMIC MEDICINE Product code [id number] [facility] DEPARTMENT OF PATHOLOGY AND GENOMIC MEDICINE Dispense status Transfused [facility] DEPARTMENT OF PATHOLOGY AND GENOMIC MEDICINE Blood expiration date [facility] DEPARTMENT OF PATHOLOGY AND GENOMIC MEDICINE Blood type code 0600 [facility] DEPARTMENT OF PATHOLOGY AND GENOMIC MEDICINE Blood type A NEGATIVE [facility] DEPARTMENT OF PATHOLOGY AND GENOMIC MEDICINE Product name Thawed Plasma [facility] DEPARTMENT OF PATHOLOGY AND GENOMIC MEDICINE Unit number [id number] [facility] DEPARTMENT OF PATHOLOGY AND GENOMIC MEDICINE Product code [id number] [facility] DEPARTMENT OF PATHOLOGY AND GENOMIC MEDICINE Dispense status Transfused [facility] DEPARTMENT OF PATHOLOGY AND GENOMIC MEDICINE Blood expiration date [facility] DEPARTMENT OF PATHOLOGY AND GENOMIC MEDICINE Blood type code 6200 [facility] DEPARTMENT OF PATHOLOGY AND GENOMIC MEDICINE Blood type A POSITIVE [facility] DEPARTMENT OF PATHOLOGY AND GENOMIC MEDICINE Product name Thawed Plasma [facility] DEPARTMENT OF PATHOLOGY AND GENOMIC MEDICINE Unit number [id number] [facility] DEPARTMENT OF PATHOLOGY AND GENOMIC MEDICINE Product code [id number] [facility] DEPARTMENT OF PATHOLOGY AND GENOMIC MEDICINE Dispense status Transfused [facility] DEPARTMENT OF PATHOLOGY AND GENOMIC MEDICINE Blood expiration date [facility] DEPARTMENT OF PATHOLOGY AND GENOMIC MEDICINE Blood type code 6200 [facility] DEPARTMENT OF PATHOLOGY AND GENOMIC MEDICINE Blood type A POSITIVE [facility] DEPARTMENT OF PATHOLOGY AND GENOMIC MEDICINE Product name Thawed Plasma [facility] DEPARTMENT OF PATHOLOGY AND GENOMIC MEDICINE Unit number [id number] [facility] DEPARTMENT OF PATHOLOGY AND GENOMIC MEDICINE Product code [id number] [facility] DEPARTMENT OF PATHOLOGY AND GENOMIC MEDICINE Dispense status Transfused [facility] DEPARTMENT OF PATHOLOGY AND GENOMIC MEDICINE Blood expiration date [facility] DEPARTMENT OF PATHOLOGY AND GENOMIC MEDICINE Blood type code 8400 [facility] DEPARTMENT OF PATHOLOGY AND GENOMIC MEDICINE Blood type AB POSITIVE [facility] DEPARTMENT OF PATHOLOGY AND GENOMIC MEDICINE Product name Thawed Plasma [facility] DEPARTMENT OF PATHOLOGY AND GENOMIC MEDICINE Unit number [id number] [facility] DEPARTMENT OF PATHOLOGY AND GENOMIC MEDICINE Product code [id number] [facility] DEPARTMENT OF PATHOLOGY AND GENOMIC MEDICINE Dispense status Transfused [facility] DEPARTMENT OF PATHOLOGY AND GENOMIC MEDICINE Blood expiration date [facility] DEPARTMENT OF PATHOLOGY AND GENOMIC MEDICINE Blood type code 6200 [facility] DEPARTMENT OF PATHOLOGY AND GENOMIC MEDICINE Blood type A POSITIVE [facility] DEPARTMENT OF PATHOLOGY AND GENOMIC MEDICINE Product name Thawed Plasma [facility] DEPARTMENT OF PATHOLOGY AND GENOMIC MEDICINE Unit number [id number] [facility] DEPARTMENT OF PATHOLOGY AND GENOMIC MEDICINE Product code [id number] [facility] DEPARTMENT OF PATHOLOGY AND GENOMIC MEDICINE Dispense status Transfused [facility] DEPARTMENT OF PATHOLOGY AND GENOMIC MEDICINE Blood expiration date [facility] DEPARTMENT OF PATHOLOGY AND GENOMIC MEDICINE Blood type code 8400 [facility] DEPARTMENT OF PATHOLOGY AND GENOMIC MEDICINE Blood type AB POSITIVE [facility] DEPARTMENT OF PATHOLOGY AND GENOMIC MEDICINE Product name Thawed Plasma [facility] DEPARTMENT OF PATHOLOGY AND GENOMIC MEDICINE Unit number [id number] [facility] DEPARTMENT OF PATHOLOGY AND GENOMIC MEDICINE Product code [id number] [facility] DEPARTMENT OF PATHOLOGY AND GENOMIC MEDICINE Dispense status Returned to BB not [facility] DEPARTMENT OF transfused PATHOLOGY AND GENOMIC MEDICINE Blood expiration date [facility] DEPARTMENT OF PATHOLOGY AND GENOMIC MEDICINE Blood type code 6200 [facility] DEPARTMENT OF PATHOLOGY AND GENOMIC MEDICINE Blood type A POSITIVE [facility] DEPARTMENT OF PATHOLOGY AND GENOMIC MEDICINE Product name Thawed Plasma [facility] DEPARTMENT OF PATHOLOGY AND GENOMIC MEDICINE Unit number [id number] [facility] DEPARTMENT OF PATHOLOGY AND GENOMIC MEDICINE Product code [id number] [facility] DEPARTMENT OF PATHOLOGY AND GENOMIC MEDICINE Dispense status Returned to BB not [facility] DEPARTMENT OF transfused PATHOLOGY AND GENOMIC MEDICINE Blood expiration date [facility] DEPARTMENT OF PATHOLOGY AND GENOMIC MEDICINE Blood type code 6200 [facility] DEPARTMENT OF PATHOLOGY AND GENOMIC MEDICINE Blood type A POSITIVE [facility] DEPARTMENT OF PATHOLOGY AND GENOMIC MEDICINE Product name Thawed Plasma [facility] DEPARTMENT OF PATHOLOGY AND GENOMIC MEDICINE Unit number [id number] [facility] DEPARTMENT OF PATHOLOGY AND GENOMIC MEDICINE Product code [id number] [facility] DEPARTMENT OF PATHOLOGY AND GENOMIC MEDICINE Dispense status Returned to BB not [facility] DEPARTMENT OF transfused PATHOLOGY AND GENOMIC MEDICINE Blood expiration date [facility] DEPARTMENT OF PATHOLOGY AND GENOMIC MEDICINE Blood type code 6200 [facility] DEPARTMENT OF PATHOLOGY AND GENOMIC MEDICINE Blood type A POSITIVE [facility] DEPARTMENT OF PATHOLOGY AND GENOMIC MEDICINE Product name Thawed Plasma [facility] DEPARTMENT OF PATHOLOGY AND GENOMIC MEDICINE Unit number [id number] [facility] DEPARTMENT OF PATHOLOGY AND GENOMIC MEDICINE Product code [id number] [facility] DEPARTMENT OF PATHOLOGY AND GENOMIC MEDICINE Dispense status Returned to BB not [facility] DEPARTMENT OF transfused PATHOLOGY AND GENOMIC MEDICINE Blood expiration date [facility] DEPARTMENT OF PATHOLOGY AND GENOMIC MEDICINE Blood type code 6200 [facility] DEPARTMENT OF PATHOLOGY AND GENOMIC MEDICINE Blood type A POSITIVE [facility] DEPARTMENT OF PATHOLOGY AND GENOMIC MEDICINE Specimen Blood Performing Organization Address City/State/Zipcode Phone Number [facility] DEPARTMENT OF PATHOLOGY [address] [address] [place] Prepare cryoprecipitate (01/03/2018 12:53 PM) Product name Pooled Cryoprecipitate Thawed [facility] DEPARTMENT OF PATHOLOGY AND GENOMIC MEDICINE Unit number [id number] [facility] DEPARTMENT OF PATHOLOGY AND GENOMIC MEDICINE Product code [id number] [facility] DEPARTMENT OF PATHOLOGY AND GENOMIC MEDICINE Dispense status Transfused [facility] DEPARTMENT OF PATHOLOGY AND GENOMIC MEDICINE Blood expiration date [facility] DEPARTMENT OF PATHOLOGY AND GENOMIC MEDICINE Blood type code 6200 [facility] DEPARTMENT OF PATHOLOGY AND GENOMIC MEDICINE Blood type A POSITIVE [facility] DEPARTMENT OF PATHOLOGY AND GENOMIC MEDICINE Product name Pooled Cryoprecipitate Thawed [facility] DEPARTMENT OF PATHOLOGY AND GENOMIC MEDICINE Unit number [id number] [facility] DEPARTMENT OF PATHOLOGY AND GENOMIC MEDICINE Product code [id number] [facility] DEPARTMENT OF PATHOLOGY AND GENOMIC MEDICINE Dispense status Transfused [facility] DEPARTMENT OF PATHOLOGY AND GENOMIC MEDICINE Blood expiration date [facility] DEPARTMENT OF PATHOLOGY AND GENOMIC MEDICINE Blood type code 6200 [facility] DEPARTMENT OF PATHOLOGY AND GENOMIC MEDICINE Blood type A POSITIVE [facility] DEPARTMENT OF PATHOLOGY AND GENOMIC MEDICINE Product name Pooled Cryoprecipitate Thawed [facility] DEPARTMENT OF PATHOLOGY AND GENOMIC MEDICINE Unit number [id number] [facility] DEPARTMENT OF PATHOLOGY AND GENOMIC MEDICINE Product code [id number] [facility] DEPARTMENT OF PATHOLOGY AND GENOMIC MEDICINE Dispense status Transfused [facility] DEPARTMENT OF PATHOLOGY AND GENOMIC MEDICINE Blood expiration date [facility] DEPARTMENT OF PATHOLOGY AND GENOMIC MEDICINE Blood type code 6200 [facility] DEPARTMENT OF PATHOLOGY AND GENOMIC MEDICINE Blood type A POSITIVE [facility] DEPARTMENT OF PATHOLOGY AND GENOMIC MEDICINE Product name Pooled Cryoprecipitate Thawed [facility] DEPARTMENT OF PATHOLOGY AND GENOMIC MEDICINE Unit number [id number] [facility] DEPARTMENT OF PATHOLOGY AND GENOMIC MEDICINE Product code [id number] [facility] DEPARTMENT OF PATHOLOGY AND GENOMIC MEDICINE Dispense status Transfused [facility] DEPARTMENT OF PATHOLOGY AND GENOMIC MEDICINE Blood expiration date [facility] DEPARTMENT OF PATHOLOGY AND GENOMIC MEDICINE Blood type code 6200 [facility] DEPARTMENT OF PATHOLOGY AND GENOMIC MEDICINE Blood type A POSITIVE [facility] DEPARTMENT OF PATHOLOGY AND GENOMIC MEDICINE Performing Organization Address City/State/Zipcode Phone Number [facility] DEPARTMENT OF PATHOLOGY AND [address] [place] [phone] [place] Prepare RBC, 2 Units (01/03/2018 12:53 PM) Product name Red Blood Cells -1, [facility] DEPARTMENT OF Leukored PATHOLOGY AND GENOMIC MEDICINE Unit number [id number] [facility] DEPARTMENT OF PATHOLOGY AND GENOMIC MEDICINE Product code [id number] [facility] DEPARTMENT OF PATHOLOGY AND GENOMIC MEDICINE Dispense status Transfused [facility] DEPARTMENT OF PATHOLOGY AND GENOMIC MEDICINE Blood expiration date [facility] DEPARTMENT OF PATHOLOGY AND GENOMIC MEDICINE Blood type code 6200 [facility] DEPARTMENT OF PATHOLOGY AND GENOMIC MEDICINE Blood type A POSITIVE [facility] DEPARTMENT OF PATHOLOGY AND GENOMIC MEDICINE Product name Red Blood Cells -1, [facility] DEPARTMENT OF Leukored PATHOLOGY AND GENOMIC MEDICINE Unit number [id number] [facility] DEPARTMENT OF PATHOLOGY AND GENOMIC MEDICINE Product code [id number] [facility] DEPARTMENT OF PATHOLOGY AND GENOMIC MEDICINE Dispense status Transfused [facility] DEPARTMENT [facility] PATHOLOGY AND GENOMIC MEDICINE Blood expiration date [facility] DEPARTMENT OF PATHOLOGY AND GENOMIC MEDICINE Blood type code 6200 [facility] DEPARTMENT OF PATHOLOGY AND GENOMIC MEDICINE Blood type A POSITIVE [facility] DEPARTMENT OF PATHOLOGY AND GENOMIC MEDICINE Product name Red Blood Cells -1, [facility] DEPARTMENT OF [facility]OM[facility] MEDIC[facility] Unit number [id number] [facility] DEPARTMENT OF PATHOLOGY AND GENOMIC MEDICINE Product code [id number] [facility] DEPARTMENT OF PATHOLOGY AND GENOMIC MEDICINE Dispense status Transfused [facility] DEPARTMENT OF PATHOLOGY AND GENOMIC MEDICINE Blood expiration date [facility] DEPARTMENT OF PATHOLOGY AND GENOMIC MEDICINE Blood type code 6200 [facility] DEPARTMENT OF PATHOLOGY AND GENOMIC MEDICINE Blood type A POSITIVE [facility] DEPARTMENT OF PATHOLOGY AND GENOMIC MEDICINE Product name Red Blood Cells -1, [facility] DEPARTMENT OF [facility] PATHOLOGY AND GENOMIC MEDICINE Unit number [id number] [facility] DEPARTMENT OF PATHOLOGY AND GENOMIC MEDICINE Product code [id number] [facility] DEPARTMENT OF PATHOLOGY AND GENOMIC MEDICINE Dispense status Transfused [facility] DEPARTMENT OF PATHOLOGY AND GENOMIC MEDICINE Blood expiration date [facility] DEPARTMENT OF PATHOLOGY AND GENOMIC MEDICINE Blood type code 6200 [facility] DEPARTMENT OF PATHOLOGY AND GENOMIC MEDICINE Blood type A POSITIVE [facility] DEPARTMENT OF PATHOLOGY AND GENOMIC MEDICINE Product name Red Blood Cells -1, [facility] DEPARTMENT OF [facility] PATHOLOGY AND GENOMIC MEDICINE Unit number [id number] [facility] DEPARTMENT OF PATHOLOGY AND GENOMIC MEDICINE Product code [id number] [facility] DEPARTMENT OF PATHOLOGY AND GENOMIC MEDICINE Dispense status Transfused [facility] DEPARTMENT OF PATHOLOGY AND GENOMIC MEDICINE Blood expiration date [facility] DEPARTMENT OF PATHOLOGY AND GENOMIC MEDICINE Blood type code 6200 [facility] DEPARTMENT OF PATHOLOGY AND GENOMIC MEDICINE Blood type A POSITIVE [facility] DEPARTMENT OF PATHOLOGY AND GENOMIC MEDICINE Product name Red Blood Cells -1, [facility] DEPARTMENT OF [facility] PATHOLOGY AND GENOMIC MEDICINE Unit number [id number] [facility] DEPARTMENT OF PATHOLOGY AND GENOMIC MEDICINE Product code [id number] [facility] DEPARTMENT OF PATHOLOGY AND GENOMIC MEDICINE Dispense status Transfused [facility] DEPARTMENT OF PATHOLOGY AND GENOMIC MEDICINE Blood expiration date [facility] DEPARTMENT OF PATHOLOGY AND GENOMIC MEDICINE Blood type code 6200 [facility] DEPARTMENT OF PATHOLOGY AND GENOMIC MEDICINE Blood type A POSITIVE [facility] DEPARTMENT OF PATHOLOGY AND GENOMIC MEDICINE Product name Red Blood Cells -1, [facility] DEPARTMENT OF [facility] PATHOLOGY AND GENOMIC MEDICINE Unit number [id number] [facility] DEPARTMENT OF PATHOLOGY AND GENOMIC MEDICINE Product code [id number] [facility] DEPARTMENT OF PATHOLOGY AND GENOMIC MEDICINE Dispense status Returned to not [facility] DEPARTMENT OF transfused PATHOLOGY AND GENOMIC MEDICINE Blood expiration date [facility] DEPARTMENT OF PATHOLOGY AND GENOMIC MEDICINE Blood type code 6200 [facility] DEPARTMENT OF PATHOLOGY AND GENOMIC MEDICINE Blood type A POSITIVE [facility] DEPARTMENT OF PATHOLOGY AND GENOMIC MEDICINE Product name Red Blood Cells -1, [facility] DEPARTMENT OF [facility] PATHOLOGY AND GENOMIC MEDICINE Unit number [id number] [facility] DEPARTMENT OF PATHOLOGY AND GENOMIC MEDICINE Product code [id number] [facility] DEPARTMENT OF PATHOLOGY AND GENOMIC MEDICINE Dispense status Returned to BB not [facility] DEPARTMENT OF transfused PATHOLOGY AND GENOMIC MEDICINE Blood expiration date [facility] DEPARTMENT OF PATHOLOGY AND GENOMIC MEDICINE Blood type code 6200 [facility] DEPARTMENT OF PATHOLOGY AND GENOMIC MEDICINE Blood type A POSITIVE [facility] DEPARTMENT OF PATHOLOGY AND GENOMIC MEDICINE Product name Red Blood Cells -1, [facility] DEPARTMENT OF [facility] PATHOLOGY AND GENOMIC MEDICINE Unit number [id number] [facility] DEPARTMENT OF PATHOLOGY AND GENOMIC MEDICINE Product code [id number] [facility] DEPARTMENT OF PATHOLOGY AND GENOMIC MEDICINE Dispense status Transfused [facility] DEPARTMENT OF PATHOLOGY AND GENOMIC MEDICINE Blood expiration date [facility] DEPARTMENT OF PATHOLOGY AND GENOMIC MEDICINE Blood type code 6200 [facility] DEPARTMENT OF PATHOLOGY AND GENOMIC MEDICINE Blood type A POSITIVE [facility] DEPARTMENT OF PATHOLOGY AND GENOMIC MEDICINE Product name Red Blood Cells -1, [facility] DEPARTMENT OF [facility] PATHOLOGY AND GENOMIC MEDICINE Unit number [id number] [facility] DEPARTMENT OF PATHOLOGY AND GENOMIC MEDICINE Product code [id number] [facility] DEPARTMENT OF PATHOLOGY AND GENOMIC MEDICINE Dispense status Returned to BB not [facility] DEPARTMENT OF transfused PATHOLOGY AND GENOMIC MEDICINE Blood expiration date [facility] DEPARTMENT OF PATHOLOGY AND GENOMIC MEDICINE Blood type code 6200 [facility] DEPARTMENT OF PATHOLOGY AND GENOMIC MEDICINE Blood type A POSITIVE [facility] DEPARTMENT OF PATHOLOGY AND GENOMIC MEDICINE Performing Organization Address City/State/Zipcode Phone Number [facility] DEPARTMENT OF PATHOLOGY AND [address] [place] [phone] [place] Insert arterial line (12/31/2017 9:34 AM)Only the most recent of2 resultswithin the time period is included. Narrative Performed At Nohemi Kim Jr., PA-C 12/31/20179:35 AM Arterial Line Insertion Date/Time: 12/31/2017 9:35 AM Performed by: NOHEMI KIM JR. Authorized by: NOHEMI KIM JR. Consent: Consent obtained:Verbal Consent given by:Patient Indications: Indications: hemodynamic monitoring and multiple ABGs Pre-procedure details: Skin preparation:2% Chlorhexidine Preparation: Patient was prepped and draped in sterile fashion Anesthesia (see MAR for exact dosages): Anesthesia method:Local infiltration Local anesthetic:Lidocaine 1% w/o epi Procedure details: Location:R radial Transducer: waveform confirmed Post-procedure details: Post-procedure:Biopatch applied and sutured Patient tolerance of procedure:Tolerated well, no immediate complications Echocardiogram complete w contrast and 3D if needed (12/30/2017 6:18 PM) Narrative Performed At [facility] Echocardiography Report [address] [facility], [place] [address] Pat.Name:VERNON KIMBALL Pat.ID:[id number] .Date: 12/30/2017 Refer.MD:MARGARETTE ALICIA MD Exam Time: 3:10:00 PMStudy Type:Routine Echo Height:70inWeight: 211lb BSA: 2.14 m2 DOBAge:1940,77Y Sex: MALEBP:112/60 HR:56 bpmSonogrphr: Inez Robb, RDCS, RVT Pat. Stat.:Inpatient Room:[place] [address] Study Status:Final Echo Event ID:[id number] Order ID:[id number] Reason for Study:Ventricular Function - Routine surveillance of ventricular function with known CAD an no change in clinical status or cardiac exam History / Clinical:Hypertension, TIA Procedures:2D Echo, Colorflow Doppler, Portable, Stat, Intravenous Optison Contrast Race:C SUMMARY: Overall wall motion is normal. Estimated EF is >70%. Aortic root diameter is moderately enlarged (Sinus of Valsalva 4.6 cm). An echogenic linear structure is seen in the abdominal aorta; cannot rule out a dissection flap. 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 Findings correlated with CT done earlier on the same day. FINDINGS: LV: LV size is normal. Concentric left ventricular remodeling. LVEF is hyperdynamic. Overall wall motion is normal. EstimatedEF is >70%. RV: RV size is normal. RV systolic function is normal. LA: LA volume is mildly enlarged. RA: RA volume is difficult to assess; appears enlarged. AO: Aortic root diameter is moderately enlarged (Sinus of Valsalva4.6 cm). Ascending aorta diameter is difficult to assessbut it appears to be enlarged. An echogenic linear structureis seen in the abdominal aorta; cannot rule out a dissectionflap vs artifact. The descending thoracic aorta appearsto be severely enlarged (poor border definition for accuratemeasurement). GABINO: No pericardial effusion. AV: Mild thickening and calcification of AV leaflets. Mild aorticregurgitation. MV: Mild to moderate thickening and calcification of mitral leaflets. PV: No structural PV abnormalities noted. TV: No structural TV abnormalities noted. Mello: Hepatic vein pressure is normal, RA pressure < 5mmHg. Diastolicdysfunction Grade II (Moderate): Impaired relaxationwith elevated LV filling pressures. Other:Insufficient TR jet to estimate PA systolic pressure. MEASUREMENTS: 2D Parasternal Long [place] LVOT 2 cmIVSd 1.5 cm Ao An2.1 cmLVPWd1.2 cm LVIDd4.5 cmIndex2.1 cm/m LV Ttcy578.2 g(122-174) LVIDs1.9 cmLVM Zcaim121.6 g/m2 LV%fs 56.7 % RWT0.5 LA Sng Plane LA Area 26.2 cm2(8.8-23.4) LA Vol72.3 ml Index33.8 ml/m LA LngAx 7.7 cm RA Sng Plane RA Area 31.8 cm2(8.3-19.5) RA Vol 117.6 ml Index55 ml/m RA LngAx 7.5 cm Aorta Ao Sin 4.6 cm DOPPLER LVOT Stroke Vol LVOT 2 cmLVOT CO4.9 l/min LVOT TVI30.8 cmLVOT CI2.3 l/m/m2 LVOT Tm317 uuzoGT57 bpm LVOT SV 96.6 ml MV E/A Ratio MV pkE91.5 cm/s (60-130) MV E/A 1 MV pkA96.1 cm/s Diastology E/Em Ratio Em5.6 cm/s E/Em 15.8 IVRT IVRT72 msec Left Ventricle LaLat Em 6.5 cm/s Signed 12/30/2017 07:03 PM Doreen Bourne M.D. Procedure Note Interface, Radiology Results In - 12/30/2017 7:03 PM CDT Echocardiography Report [address] [place] [address] Pat.Name: VERNON KIMBALL Pat.ID: [id number] .Date: 12/30/2017 Refer.MD: MARGARETTE ALICIA MD Exam Time: 3:10:00 PM Study Type:Routine Echo Height: 70in Weight: 211lb BSA: 2.14 m2 Age: 3 1940,77Y Sex: MALE BP: 112/60 HR: 56 bpm Sonogrphr: Inez Robb RDCS, RVT Pat. Stat.:Inpatient Room: [place] [address] Study Status:Final Echo Event ID:[id number] Order ID: [id number] Reason for Study:Ventricular Function - Routine surveillance of ventricular function with known CAD an no change in clinical status or cardiac exam History / Clinical:Hypertension, TIA Procedures:2D Echo, Colorflow Doppler, Portable, Stat, Intravenous Optison Contrast Race: C SUMMARY: Overall wall motion is normal. Estimated EF is >70%. Aortic root diameter is moderately enlarged (Sinus of Valsalva 4.6 cm). An echogenic linear structure is seen in the abdominal aorta; cannot rule out a dissection flap. 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 Findings correlated with CT done earlier on the same day. FINDINGS: LV: LV size is normal. Concentric left ventricular remodeling. LV EF is hyperdynamic. Overall wall motion is normal. Estimated EF is >70%. RV: RV size is normal. RV systolic function is normal. LA: LA volume is mildly enlarged. RA: RA volume is difficult to assess; appears enlarged. AO: Aortic root diameter is moderately enlarged (Sinus of Valsalva 4.6 cm). Ascending aorta diameter is difficult to assess but it appears to be enlarged. An echogenic linear structure is seen in the abdominal aorta; cannot rule out a dissection flap vs artifact. The descending thoracic aorta appears to be severely enlarged (poor border definition for accurate measurement). GABINO: No pericardial effusion. AV: Mild thickening and calcification of AV leaflets. Mild aortic regurgitation. MV: Mild to moderate thickening and calcification of mitral leaflets. PV: No structural PV abnormalities noted. TV: No structural TV abnormalities noted. Mello: Hepatic vein pressure is normal, RA pressure < 5mmHg. Diastolic dysfunction Grade II (Moderate): Impaired relaxation with elevated LV filling pressures. Other: Insufficient TR jet to estimate PA systolic pressure. MEASUREMENTS: 2D Parasternal Long [place] LVOT 2 cm IVSd 1.5 cm Ao An 2.1 cm LVPWd 1.2 cm LVIDd 4.5 cm Index 2.1 cm/m LV Mass 228.2 g (122-174) LVIDs 1.9 cm LVM Index 106.6 g/m2 LV%fs 56.7 % RWT 0.5 LA Sng Plane LA Area 26.2 cm2 (8.8-23.4) LA Vol 72.3 ml Index 33.8 ml/m LA LngAx 7.7 cm RA Sng Plane RA Area 31.8 cm2 (8.3-19.5) RA Vol 117.6 ml Index 55 ml/m RA LngAx 7.5 cm Aorta Ao Sin 4.6 cm DOPPLER LVOT Stroke Vol LVOT 2 cm LVOT CO 4.9 l/min LVOT TVI 30.8 cm LVOT CI 2.3 l/m/m2 LVOT Tm 317 msec HR 51 bpm LVOT SV 96.6 ml MV E/A Ratio MV pkE 91.5 cm/s (60-130) MV E/A 1 MV pkA 96.1 cm/s Diastology E/Em Ratio Em 5.6 cm/s E/Em 15.8 IVRT IVRT 72 msec Left Ventricle LaLat Em 6.5 cm/s Signed 12/30/2017 07:03 PM Doreen Bourne M.D. Performing Organization Address City/State/Zipcode Phone Number [facility] [address] [place] [address] Cv cta chest (thoracic aorta) w contrast (12/30/2017 2:55 PM) Narrative Performed At [facility] Nuclear Cardiology and Cardiac CT [address] [place] [address] CTA Coronary Arteries Report Pat.Name:VERNON KIMBALL Pat.ID:[id number] .Date: 12/30/2017 Refer.MD:MARGARETTE ALICIA MD Exam Time: 2:05:00 PMStudy Type:CTA Coronary Arteries Height:70inWeight: 211lb BSA: 2.14 m2 DOBAge:1940,77Y Sex: MALEBP:114/61 HR:48 bpm Nuclear Tech:Low [place] RT([place])(CT), [facility] Pat. Stat.:Inpatient CPT - 4: CCTA w Thoracic Aorta (NonCongenital) [id number], CTA ABD/PELV W/WO [id number] Nuclear Event ID:[id number] Order ID:[id number] Reason for Study:Aortic Disecction Procedures:CTA Abdomen SUMMARY: Technique: IV contrast was administered and sequential 0.[address] cuts were obtained through the chest [facility]. Post-processing and 3D reconstruction were done using the [employer] workstation. Interactive image viewing and volumetric display and analysis were also performed. CTA RESULTS Left Main: A normal sized5 mm artery which arises normally from the left sinus of Valsalva and divides into the left anterior descending and circumflex coronary arteries. No significant atherosclerotic plaque is present. Left anterior descending (LAD): A normal sized 4mm artery which wraps around the apex and gives off one diagonal branch. Moderate calcified and non-calcified atherosclerotic plaque is present with mild stenosis in the proximal segment. The first diagonal is a 3 mm artery which has mild calcified and non-calcified atherosclerotic plaque present but with no significant stenosis. Left circumflex: A normal sized 4 mm non-dominant artery which gives off four major obtuse marginal arteries before terminating in the AV groove. No significant atherosclerotic plaque is present. The first obtuse marginal is a < 1.5 mm artery which has mild calcified and non-calcified atherosclerotic plaque present but with no significant stenosis. The second obtuse marginal is a 2.5 mm artery which has mild calcified and non-calcified atherosclerotic plaque present but with no significant stenosis. The third obtuse marginal is a < 1.5 mm artery which has mild calcified and non-calcified atherosclerotic plaque present but with no significant stenosis. The fourth obtuse marginal is a 2.5 mm artery which has mild calcified and non-calcified atherosclerotic plaque present but with no significant stenosis. The posterolateral branch is a 1.5 mm artery which has mild calcified and non-calcified atherosclerotic plaque present but with no significant stenosis. Right coronary artery: A normal sized 4 mm dominant artery which arises normally from the right sinus of Valsalva and gives off several right ventricular branches, the posterior descending artery and the posterolateral artery. Moderate calcified and non-calcified atherosclerotic plaque is present in the proximal segment with mild-moderate stenosis in the proximal segment. The posterior descending is a 2.5 mm artery which has mild calcified and non-calcified atherosclerotic plaque present but with no significant stenosis. Ramus: None. Stents: None. Bypass Grafts: None. Pulmonary Arteries: The main pulmonary artery is mildly dilated. Left Atrial and Pulmonary Vein(PV) Dimensions: Left atrial size (A-P diameter) 4.2 cm. Normal PV anatomy There is no evidence of the left atrial appendage clot. Left Ventricular Valve Morphology/Function: LV septal wall thickness 12 mm. Aortic valve is tri-leaflet. 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 Aortic root:4.4 cm. Sinotubular junction:4 cm. Mid ascending thoracic aorta: 4.4 cm. The left vertebral artery arises directly from the aortic arch as a variant. Descending thoracic aorta:8.2 cm. Severely dilated. Supra-renal abdominal aorta: 4 cm with no significant atherosclerotic plaque. Celiac trunk: no significant stenosis. Superior mesenteric artery: no significant stenosis. Right renal artery: no significant stenosis. Left renal artery: no significant stenosis; arises from the false lumen. Infrarenal aorta: 2.5 cm with no significant atherosclerotic plaque. Inferior mesenteric artery: no significant stenosis. Aortic Bifurcation Left Lower Extremity Right common iliac is a 11 mm artery which has no significant atherosclerotic plaque present. There is a dissection present in the right common iliac artery. Right internal iliac is a 11 mm artery which has no significant atherosclerotic plaque present. There is a dissection present in the right internal iliac artery. Left common iliac is a 10mm artery which has no significant atherosclerotic plaque present. Pericardium: No pericardial effusion or pericardial thickening. Non-Cardiac Findings: None. CONCLUSION CT coronary angiography shows moderate coronary atherosclerosis and coronary artery stenoses as detailed above. The LVEF and RVEF are normal. Normal PV anatomy. There is no evidence of left atrial appendage thrombus. Vascular measurements as above. 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 STUDY QUALITY The study quality is good. COMMENTS: None. The above report was based on a dedicated Cardiovascular CTA Protocol and interpreted by a [employer] Still Operator.Should a more comprehensive assessment of non-cardiovascular findings be desired, please consult a radiologist.These images are available in the [facility] Fullscreen PACS system. Signed 12/30/2017 04:36 PM Keke Fairchild MD Procedure Note Interface, Radiology Results In - 12/30/2017 4:36 PM CDT Nuclear Cardiology and Cardiac CT [address] [place] [address] CTA Coronary Arteries Report Pat.Name: VERNON KIMBALL Pat.ID: [id number] .Date: 12/30/2017 Refer.MD: MARGARETTE ALICIA MD Exam Time: 2:05:00 PM Study Type:CTA Coronary Arteries Height: 70in Weight: 211lb BSA: 2.14 m2 Age: 3 1940,77Y Sex: MALE BP: 114/61 HR: 48 bpm Nuclear Tech:Low [place] RT([place])(CT), [facility] Pat. Stat.:Inpatient CPT - 4: CCTA w Thoracic Aorta (NonCongenital) 17611;08154, CTA ABD/PELV W/WO [id number] Nuclear Event ID:[id number] Order ID: [id number] Reason for Study:Aortic Disecction Procedures:CTA Abdomen SUMMARY: Technique: IV contrast was administered and sequential 0.[address] cuts were obtained through the chest using the [employer] Force CT scanner. Post-processing and 3D reconstruction were done using the [employer] workstation. Interactive image viewing and volumetric display and analysis were also performed. CTA RESULTS Left Main: A normal sized 5 mm artery which arises normally from the left sinus of Valsalva and divides into the left anterior descending and circumflex coronary arteries. No significant atherosclerotic plaque is present. Left anterior descending (LAD): A normal sized 4mm artery which wraps around the apex and gives off one diagonal branch. Moderate calcified and non-calcified atherosclerotic plaque is present with mild stenosis in the proximal segment. The first diagonal is a 3 mm artery which has mild calcified and non-calcified atherosclerotic plaque present but with no significant stenosis. Left circumflex: A normal sized 4 mm non-dominant artery which gives off four major obtuse marginal arteries before terminating in the AV groove. No significant atherosclerotic plaque is present. The first obtuse marginal is a < 1.5 mm artery which has mild calcified and non-calcified atherosclerotic plaque present but with no significant stenosis. The second obtuse marginal is a 2.5 mm artery which has mild calcified and non-calcified atherosclerotic plaque present but with no significant stenosis. The third obtuse marginal is a < 1.5 mm artery which has mild calcified and non-calcified atherosclerotic plaque present but with no significant stenosis. The fourth obtuse marginal is a 2.5 mm artery which has mild calcified and non-calcified atherosclerotic plaque present but with no significant stenosis. The posterolateral branch is a 1.5 mm artery which has mild calcified and non-calcified atherosclerotic plaque present but with no significant stenosis. Right coronary artery: A normal sized 4 mm dominant artery which arises normally from the right sinus of Valsalva and gives off several right ventricular branches, the posterior descending artery and the posterolateral artery. Moderate calcified and non-calcified atherosclerotic plaque is present in the proximal segment with mild-moderate stenosis in the proximal segment. The posterior descending is a 2.5 mm artery which has mild calcified and non-calcified atherosclerotic plaque present but with no significant stenosis. Ramus: None. Stents: None. Bypass Grafts: None. Pulmonary Arteries: The main pulmonary artery is mildly dilated. Left Atrial and Pulmonary Vein (PV) Dimensions: Left atrial size (A-P diameter) 4.2 cm. Normal PV anatomy There is no evidence of the left atrial appendage clot. Left Ventricular Valve Morphology/Function: LV septal wall thickness 12 mm. Aortic valve is tri-leaflet. 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 Aortic root: 4.4 cm. Sinotubular junction: 4 cm. Mid ascending thoracic aorta: 4.4 cm. The left vertebral artery arises directly from the aortic arch as a variant. Descending thoracic aorta: 8.2 cm. Severely dilated. Supra-renal abdominal aorta: 4 cm with no significant atherosclerotic plaque. Celiac trunk: no significant stenosis. Superior mesenteric artery: no significant stenosis. Right renal artery: no significant stenosis. Left renal artery: no significant stenosis; arises from the false lumen. Infrarenal aorta: 2.5 cm with no significant atherosclerotic plaque. Inferior mesenteric artery: no significant stenosis. Aortic Bifurcation Left Lower Extremity Right common iliac is a 11 mm artery which has no significant atherosclerotic plaque present. There is a dissection present in the right common iliac artery. Right internal iliac is a 11 mm artery which has no significant atherosclerotic plaque present. There is a dissection present in the right internal iliac artery. Left common iliac is a 10mm artery which has no significant atherosclerotic plaque present. Pericardium: No pericardial effusion or pericardial thickening. Non-Cardiac Findings: None. CONCLUSION CT coronary angiography shows moderate coronary atherosclerosis and coronary artery stenoses as detailed above. The LVEF and RVEF are normal. Normal PV anatomy. There is no evidence of left atrial appendage thrombus. Vascular measurements as above. 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 STUDY QUALITY The study quality is good. COMMENTS: None. The above report was based on a dedicated Cardiovascular CTA Protocol and interpreted by a [place]hthal[employer] Still Operator. Should a more comprehensive assessment of non-cardiovascular findings be desired, please consult a radiologist. These images are available in the [facility] Fullscreen PACS system. Signed 12/30/2017 04:36 PM Keke Fairchild MD Performing Organization Address [facility]/Zipcode Phone Number [facility] [address] [place] [address] Hemoglobin A1c (12/30/2017 11:35 AM) Hemoglobin A1C 5.8 (H) 4.0 - 5.6 % [facility] DEPARTMENT OF PATHOLOGY Comment: AND [place] HbA1c cutoffs for diagnosing diabetes: 4.0% - 5.6%=normal 5.7% - 6.4%=increased risk for diabetes (prediabetes) >=6.5%=diabetes Goals for glycemic control (ADA 2016) < 7.0%Target for non adults with diabetes. More or less stringent targets may be appropriate for individual patients. <7.5% Target for Children and adolescents with type 1 diabetes. Specimen Blood Performing Organization Address [facility]ercome Phone Number [facility] DEPARTMENT OF PATHOLOGY AND [address] [place] [address] [facility] Lactic acid level (12/30/2017 11:25 AM) Lactic acid 1.6 0.5 - 2.2 mmol/L [facility] DEPARTMENT OF PATHOLOGY AND [facility] Specimen Blood Performing Organization Address [facility] Centercode Phone Number [facility] DEPARTMENT OF PATHOLOGY AND [address] [place] [id number] [facility] Troponin (12/30/2017 3:40 AM)Only the most recent of3 resultswithin the time period is included. Troponin <0.30 0.00 - 0.30 ng/mL [facility] DEPARTMENT OF PATHOLOGY Comment: AND GENOMIC MEDICINE 0.30 - 1.49 ng/mlMay indicate increased risk of acute coronary syndrome. >=1.5 ng/mlConsistent with acute myocardial infarction. The diagnostic value of a single normal or non-diagnostic result is questionable.Serial samples at 2-6 hour intervals are required to rule out acute myocardial injury. Specimen Plasma specimen Performing Organization Address [facility]/Zipcode Phone Number [facility] DEPARTMENT OF PATHOLOGY AND [address] [place] [address] [facility] ECG ED Preliminary Interpretation - NOT AN ORDER (12/29/2017 3:48 PM) Narrative Performed At [facility], 01/01/2018 10:35 AM ECG ED Preliminary Interpretation - Not an Order Performed by: JACKSON MAY Authorized by: JACKSON MAY ECG reviewed by ED Physician in the absence of a legal billing specialist: yes Interpretation: Interpretation: abnormal Rate: ECG rate:60 ECG rate assessment: normal Rhythm: Rhythm: sinus rhythm and A-V block QRS: QRS axis:Normal QRS intervals:Wide Conduction: Conduction: abnormal Abnormal conduction: 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 ST segments: ST segments:Normal T waves: T waves: normal Q waves: Q waves:II, aVF and III CRITICAL CARE (12/29/2017 3:48 PM) Narrative Performed At [facility], 01/01/2018 10:35 AM Critical Care Performed by: JACKSON MAY Authorized by: JACKSON MAY Critical care provider statement: Critical care time (minutes):35 Critical care time was exclusive of:Separately billable procedures and treating other patients Critical care was necessary to treat or prevent imminent or life-threatening deterioration of the following conditions: hypertensive urgency with aortic dissection Critical care was time spent personally by me on the following activities:Blood draw for specimens, development of treatment plan with patient or surrogate, discussions with consultants, evaluation of patient's response to treatment, examination of patient, obtaining history from patient or surrogate, review of old charts, re-evaluation of patient's condition, pulse oximetry, ordering and review of radiographic studies, ordering and review of laboratory studies and ordering and performing treatments and interventions Creatine kinase, total (CPK) (12/29/2017 3:08 PM) Creatine kinase 112 39 - 308 U/L [facility] DEPARTMENT OF PATHOLOGY AND [facility] Specimen Plasma specimen Performing Organization Address City/[facility] Centercode Phone Number [facility] DEPARTMENT OF PATHOLOGY AND [address] [place] [address] GENOMIC MEDICINE CTA Chest W Wo Contrast (12/29/2017 11:41 AM) Narrative Performed At EXAMINATION:CT ANGIOGRAM CHEST W WO CONTRAST RADIANT CLINICAL HISTORY:I10 Essential (primary) hypertension, I71.2 Thoracic aortic aneurysmwithout rupture, Thoracic aorta anusm TECHNIQUE: Multiple CT angiographic images of the chest were obtained during intravenous administration of contrast. Multiple computerized reformatted images as well as 3-D volume rendered images were also obtained. Scan was performed using radiation dose reduction techniques. COMPARISON:None. FINDINGS: There is a large dissecting aortic aneurysm involving the descending thoracic aorta. This measures up to 8.2 cm in diameter at the proximal descending segment tapering to 4.1 cm distally. The ascending aorta demonstrates mild fusiform aneurysm measuring 4.3 cm. Aortic root is approximately 5 cm, and sinotubular junction 4 cm. The dissection is distal to the takeoff of the great vessels which are widely patent. Dissection extends to the abdominal aorta and is only partially imaged. Celiac axis, SMA, and right renal artery are patent and origin dating from the true lumen. Dissection involves the ostium of the left renal artery, and there is differential hypoenhancement of the left kidney. The larger false lumen is nonthrombosed with decreased enhancement relative due to limited, and small defect/fenestration is suggested in the flap at the proximal descending aorta. There is no evidence of rupture. The heart is enlarged. Lungs are clear. No pleural or pericardial effusion. 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 No prior exams are available for comparison, however per available notes, aneurysm was previously measuring 5.2 cm, and no mention of dissection is noted. This was discussed withDr. Alicia at 12/29/2017 12:11 PM who verbalized understanding. No evidence of rupture. Mild fusiform dilatation of the ascending thoracic aorta is 4.3 cm. The dissection involves the proximal left renal artery with diminished left nephrogram. [id number] Procedure Note Interface, Radiology Results [facility] - 12/29/2017 12:15 PM CDT EXAMINATION: CT ANGIOGRAM CHEST W WO CONTRAST CLINICAL HISTORY: I10 Essential (primary) hypertension, I71.2 Thoracic aortic aneurysm without rupture, Thoracic aorta anusm TECHNIQUE: Multiple CT angiographic images of the chest were obtained during intravenous administration of contrast. Multiple computerized reformatted images as well as 3-D volume rendered images were also obtained. Scan was performed using radiation dose reduction techniques. COMPARISON: None. FINDINGS: There is a large dissecting aortic aneurysm involving the descending thoracic aorta. This measures up to 8.2 cm in diameter at the proximal descending segment tapering to 4.1 cm distally. The ascending aorta demonstrates mild fusiform aneurysm measuring 4.3 cm. Aortic root is approximately 5 cm, and sinotubular junction 4 cm. The dissection is distal to the takeoff of the great vessels which are widely patent. Dissection extends to the abdominal aorta and is only partially imaged. Celiac axis, SMA, and right renal artery are patent and origin dating from the true lumen. Dissection involves the ostium of the left renal artery, and there is differential hypoenhancement of the left kidney. The larger false lumen is nonthrombosed with decreased enhancement relative due to limited, and small defect/fenestration is suggested in the flap at the proximal descending aorta. There is no evidence of rupture. The heart is enlarged. Lungs are clear. No pleural or pericardial effusion. 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 No prior exams are available for comparison, however per available notes, aneurysm was previously measuring 5.2 cm, and no mention of dissection is noted. This was discussed with Dr. Alicia at 12/29/2017 12:11 PM who verbalized understanding. No evidence of rupture. Mild fusiform dilatation of the ascending thoracic aorta is 4.3 cm. The dissection involves the proximal left renal artery with diminished left nephrogram. [id number] Performing Organization Address City/State/Zipcode Phone Number [facility] [address] [place] [address] Estimated GFR (12/29/2017 10:47 AM) GFR Non Af Amer >90 mL/min/1.73 m2 [facility] DEPARTMENT OF PATHOLOGY AND GENOMIC MEDICINE GFR Af Amer >90 mL/min/1.73 m2 [facility] DEPARTMENT OF Comment: PATHOLOGY AND GENOMIC Chronic kidney disease: <60 mL/min/1.73m2 MEDICINE Kidney failure: <15 mL/min/1.73m2 The estimated GFR is calculated from the IDMS-traceable Modification of Diet in Renal Disease Equation. The accuracy of the calculation is poor when the creatinine is normal. Calculated values >90 mL/min/1.73m2 are not reported. This equation has not been validated in children (<18 years), women, the elderly (>70 years), or ethnic groups other than Caucasians and Americans. Specimen Blood Performing Organization Address City/State/Zipcode Phone Number [facility] DEPARTMENT OF PATHOLOGY AND [address] [place] [address] GENOMIC MEDICINE POC creatinine (12/29/2017 10:47 AM) POC creatinine 0.8 0.7 - 1.2 mg/dl [facility] DEPARTMENT OF PATHOLOGY Comment: AND [facility] Meter ID: [id number] Emergency Medicine: Thuy Dent Specimen Blood Performing Organization Address City/State/Zipcode Phone Number [facility] DEPARTMENT OF PATHOLOGY AND [address] [place] [id number] GENOMIC MEDICINE COPY RECEIVED FROM: (12/27/2017 12:09 PM) Copy received from: [facility] Comment: [id number] [facility] [address] [place] [address] Performing Organization Address City/State/[facility] Centercode Phone Number [facility] COPY(IES) SENT TO: (12/27/2017 12:09 PM) Copies/mL [facility] Comment: [facility] [id number] [facility] [address] [place] [address] Performing Organization Address City/State/[facility] Centercode Phone Number [facility] after 04/17/2017 Insurance Payer Benefit Plan / Group Subscriber ID Type Phone Address MEDICARE MEDICARE PART A AND B xxxxxxxxxx Medicare [place] AET[employer] A[employer] INDEMNITY xxxxxxxxx Indemnity
[2018-04-18 11:44] LABS: Absolute Lymphocytes (CBC) 0.9 K/uL (0.7-4.9); Absolute Monocytes 0.6 K/uL (0.1-1.3); Absolute Neutrophil 3.5 K/uL (1.8-8.0); Basophils % 0.9 % (0-1.3); Eosinophils % 3.4 % (0-4.4); Hematocrit 47.8 % (39.6-49.0); Lymphocytes % 17.4 % (15.3-44.8); MCH 31.2 pg (27.0-35.0); MCV 91.5 fL (80-100); MPV 8.6 fL (7.6-11.3); Monocytes % 11.1 % (3.3-12.3); RBC Red Blood Cell Count 5.22 M/uL (4.33-5.43)
--- NOTE | 2018-04-18 11:47 | RAD REPORT ---
EXAM DESCRIPTION: CT - Head Brain Wo Cont - 04/18/2018 11:37 am CLINICAL HISTORY: Head injury status post fall. Dizziness COMPARISON: 2016 TECHNIQUE: Computed axial tomography of the head was obtained. IV contrast was not requested. All CT scans are performed using dose optimization technique as appropriate and may include automated exposure control or mA/KV adjustment according to patient size. FINDINGS: A left parietal scalp hematoma is seen without underlying skull fracture An intracranial bleed is not seen . The ventricles are normal in caliber. No extra-axial fluid collection is noted. Fluid within the sinuses/ mastoids is not seen. IMPRESSION: No acute intracranial abnormality is seen. If patient's symptoms persist MRI of the bra in would be recommended.
--- NOTE | 2018-04-18 12:24 | RAD REPORT ---
EXAM DESCRIPTION: RAD - Chest Single View - 04/18/2018 12:16 pm CLINICAL HISTORY: syncope Chest pain. COMPARISON: Chest Pa And Lat (2 Views) dated 12/17/2015; CHEST SINGLE VIEW dated 08/16/2013; CHEST PA A ND LAT 2 VIEW dated 08/05/2011; CHEST PA AND LAT 2 VIEW dated 07/26/2011 FINDINGS: Portable technique limits examination quality. Interstitial prominence is present bilaterally. The heart is mildly moderately enlarged in size. No d isplaced fractures. IMPRESSION: Mild CHF versus volume overload pattern.
--- NOTE | 2018-04-18 12:59 | EKG ---
Test Date: 2018-04-18 Test Time: 10:29:39 Rat Breeder: BP MEASUREMENT RESULTS: Intervals: Rate: 49 SC: 266 QRSD: 132 QT: 476 QTc: 429 [place]: P: 55 SC: 266 QRS: 247 T: 0 INTERPRETIVE STATEMENTS: Sinus bradycardia with 1st degree AV block Right bundle branch block Inferior infarct, age undetermined Anterolateral infarct, age undetermined Abnormal ECG Compared to ECG 08/16/2013 21:49:54 Ventricular premature complex(es) no longer present Left-axis deviation no longer present Myocardial infarct finding still present Electronically Signed On 04-18-18 12:57:50 CDT by Dawood Sharpe
[2018-04-18 13:26] LABS: Protime INR 1.04
[2018-04-18 13:42] LABS: ALT/SGPT 22 U/L (12-78); AST/SGOT 19 U/L (15-37); Albumin 3.8 g/dL (3.4-5.0); Alkaline Phosphatase 95 U/L (45-117); BUN Blood Urea Nitrogen 17 mg/dL (7-18); Bicarbonate 30 mmol/L (21-32); Bilirubin Direct 0.2 mg/dL (0-0.2); Bilirubin Total 0.8 mg/dL (0.2-1.0); Glucose Level 88 mg/dL (74-106); Magnesium 2.5 mg/dL (1.8-2.4); NT PRO-BNP 160 pg/mL (<450); Sodium Level 136 mmol/L (136-145); Troponin (Emerg Dept Use Only) < 0.02 ng/mL (0.0-0.045)
--- NOTE | 2018-04-18 14:04 | RAD REPORT ---
EXAM DESCRIPTION: MRI - Brain Wo Cont - 04/18/2018 1:53 pm CLINICAL HISTORY: fall,head injury COMPARISON: Head Brain Wo Cont dated 04/18/2018 TECHNIQUE: Multi-sequence, multiplanar MR imaging of the brain was performed without contrast. FINDINGS: No intracranial hemorrhage, hydrocephalus or extra-axial fluid collections.Mild generalize d brain atrophy with mild periventricular and deep white matter chronic microvascular ischemic change s. No edema or shift of midline structures. No findings to suspect brain mass. DWI is negative for ac mukund CVA. Midline structures are normally formed. Mastoid air cells and paranasal sinuses are clear. IMPRESSION: No acute or worrisome intracranial abnormalities.
--- NOTE | 2018-04-18 14:27 | EDPHYS ---
Physician Documentation [facility] Name: Moises Kimball Age: 77 yrs Sex: Male : 1940 Arrival Date: 04/18/2018 Time: 10:22 Bed 6 Private MD: Milo Singer V ED Physician Bobby Lilly HPI: 04/18 11:36 This 77 yrs old Male presents to ER via Wheelchair with complaints of Fall jr8 Injury, Head Injury With LOC-Adult. 11:36 Details of fall: The patient fell from an upright position, while standing. Onset: The jr8 symptoms/episode began/occurred acutely, today. Associated injuries: The patient sustained injury to the head, abrasion, hematoma, laceration, pain. Severity of symptoms: At their worst the symptoms were moderate, in the emergency department the symptoms have resolved. The patient has not experienced similar symptoms in the past. The patient has not recently seen a physician. Patient stated that he was walking when he started to feel off balance. Caused him to have syncopal episode . Fell hitting head. Historical: - Allergies: 10:34 Codeine; ss - Home Meds: 10:52 fluticasone 50 mcg/actuation nasal spsn [Active]; loratadine Oral [Active]; tw2 losartan-hydrochlorothiazide 100-12.5 mg Oral tab [Active]; Vitamin C 1,000 mg Oral tab twice a day [Active]; meloxicam 7.5 mg Oral tab 1 tab once daily [Active]; metoprolol tartrate 100 mg Oral tab [Active]; Plavix 75 mg Oral tab [Active]; simvastatin 20 mg Oral tab [Active]; - PMHx: 10:34 Hyperlipidemia; Hypertension; TIA; ss - PSHx: 10:52 back surgery; tw2 - Immunization history: Last tetanus immunization: unknown. - Social history:: Smoking status: Patient/guardian denies using tobacco. - Ebola Screening: : Patient denies exposure to infectious person Patient denies travel to an Ebola-affected area in the 21 days before illness onset. ROS: 11:36 Eyes: Negative for injury, pain, redness, and discharge, ENT: Negative for injury, jr8 pain, and discharge, Neck: Negative for injury, pain, and swelling, Cardiovascular: Negative for chest pain, palpitations, and edema, Respiratory: Negative for shortness of breath, cough, wheezing, and pleuritic chest pain, Abdomen/GI: Negative for abdominal pain, nausea, vomiting, diarrhea, and constipation, Back: Negative for injury and pain, MS/Extremity: Negative for injury and deformity. 11:36 Skin: Positive for abrasion(s), hematoma, laceration(s), of the scalp. 11:36 Neuro: Positive for dizziness, gait disturbance, syncope. Exam: 11:36 Eyes: Pupils equal round and reactive to light, extra-ocular motions intact. Lids and jr8 lashes normal. Conjunctiva and sclera are non-icteric and not injected. Cornea within normal limits. Periorbital areas with no swelling, redness, or edema. ENT: Nares patent. No nasal discharge, no septal abnormalities noted. Tympanic membranes are normal and external auditory canals are clear. Oropharynx with no redness, swelling, or masses, exudates, or evidence of obstruction, uvula midline. Mucous membranes moist. Neck: Trachea midline, no thyromegaly or masses palpated, and no cervical lymphadenopathy. Supple, full range of motion without nuchal rigidity, or vertebral point tenderness. No Meningismus. Cardiovascular: Regular rate and rhythm with a normal S1 and S2. No gallops, murmurs, or rubs. Normal PMI, no JVD. No pulse deficits. Respiratory: Lungs have equal breath sounds bilaterally, clear to auscultation and percussion. No rales, rhonchi or wheezes noted. No increased work of breathing, no retractions or nasal flaring. Abdomen/GI: Soft, non-tender, with normal bowel sounds. No distension or tympany. No guarding or rebound. No evidence of tenderness throughout. Back: No spinal tenderness. No costovertebral tenderness. Full range of motion. Skin: Warm, dry with normal turgor. Normal color with no rashes, no lesions, and no evidence of cellulitis. MS/ Extremity: Pulses equal, no cyanosis. Neurovascular intact. Full, normal range of motion. Neuro: Awake and alert, GCS 15, oriented to person, place, time, and situation. Cranial nerves II-XII grossly intact. Motor strength 5/5 in all extremities. Sensory grossly intact. Cerebellar exam normal. Normal gait. 11:36 Head/face: Noted is abrasion(s), hematoma, a laceration(s), tenderness, left parietal region of head . Vital Signs: 10:23 BP 166 / 99; Pulse 53; Resp 17; Pulse Ox 98% on R/A; Weight 95.25 kg; Height 5 ft. 10 ss in. (177.80 cm); Pain 1/10; 10:49 Temp 97.8(O); tw2 11:08 BP 156 / 85; Pulse 50; Resp 17; Pulse Ox 98% on R/A; tw2 12:32 BP 153 / 88; Pulse 44; Resp 12; Pulse Ox 99% on R/A; tw2 14:01 BP 156 / 99; Pulse 59; Resp 20; Pulse Ox 98% on R/A; tw2 15:00 BP 155 / 99; Pulse 73; Resp 22; Pulse Ox 100% on R/A; tw2 15:39 BP 157 / 94; Pulse 66; Resp 20; Pulse Ox 98% on R/A; tw2 10:23 Body Mass Index 30.13 (95.25 kg, 177.80 cm) [place] Coma Score: 10:23 Eye Response: spontaneous(4). Verbal Response: oriented(5). Motor Response: obeys ss commands(6). Total: 15. Trauma Score (Adult): 10:23 Eye Response: spontaneous(1); Verbal Response: oriented(1); Motor Response: obeys ss commands(2); Systolic BP: > 89 mm Hg(4); Respiratory Rate: 10 to 29 per min(4); [place] Score: 15; Trauma Score: 12 MDM: 10:24 Patient medically screened. [facility] 14:26 Data reviewed: vital signs, nurses notes, lab test result(s), EKG, radiologic studies, [facility] plain films, and as a result, I will admit patient. Data reviewed: radiologic studies, CT scan, MRI. Data interpreted: Pulse oximetry: on room air is 98 %. Interpretation: normal. Counseling: I had a detailed discussion with the patient and/or guardian regarding: the historical points, exam findings, and any diagnostic results supporting the discharge/admit diagnosis, lab results, radiology results, the need for further work-up and treatment in the hospital. 04/18 10:36 Order name: Glucose, Ancillary Testing; Complete Time: 10:37 EDMS 04/18 11:14 Order name: Basic Metabolic Panel; Complete Time: 13:45 jr8 04/18 11:14 Order name: CBC with Diff; Complete Time: 12:41 jr8 04/18 11:14 Order name: LFT's; Complete Time: 13:45 jr8 04/18 11:14 Order name: Magnesium; Complete Time: 13:45 jr8 04/18 11:14 Order name: NT PRO-BNP; Complete Time: 13:45 jr8 04/18 11:14 Order name: PT-INR; Complete Time: 13:35 jr8 04/18 11:14 Order name: Troponin (emerg Dept Use Only); Complete Time: 13:45 8 04/18 11:14 Order name: XRAY Chest (1 view); Complete Time: 12:25 jr8 04/18 11:14 Order name: EKG; Complete Time: 11:15 jr8 04/18 11:14 Order name: Cardiac monitoring; Complete Time: 11:21 jr8 04/18 11:14 Order name: CT Head Brain wo Cont; Complete Time: 12:09 jr8 04/18 13:02 Order name: MRI - Brain Wo Cont; Complete Time: 14:12 bd 04/18 14:43 Order name: Diet Regular; Complete Time: 14:43 tw2 04/18 11:14 Order name: EKG - Nurse/Tech; Complete Time: 11:21 jr8 04/18 11:14 Order name: IV Saline Lock; Complete Time: 11:30 jr8 04/18 11:14 Order name: Labs collected and sent; Complete Time: 11:30 jr8 04/18 11:14 Order name: O2 Per Protocol; Complete Time: 11:21 jr8 04/18 11:14 Order name: O2 Sat Monitoring; Complete Time: 11:21 jr8 04/18 11:51 Order name: Labs - recollect needed; Complete Time: 13:16 bd Administered Medications: No medications were administered Disposition: 04/19 07:27 Co-signature as Attending Physician, Bobby Lilly MD I agree with the assessment and toan plan of care. Disposition: 04/18/18 14:27 Hospitalization ordered by Milo Singer for Observation. Preliminary diagnosis is Syncope and collapse. - Bed requested for Telemetry/MedSurg (observation). - Status is Observation. tw2 - Condition is Stable. - Problem is new. - Symptoms have improved. UTI on Admission? No Signatures: Dispatcher [employer] EDMS Thu Henry Diana, RN RN dw Bobby Lilly MD MD cha Smirch, Shelby, RN RN Pedro Hensley PA PA jr8 Sissy Lutz, RN RN tw2 Corrections: (The following items were deleted from the chart) 04/18 15:37 14:27 Hospitalization Ordered by Milo Singer MD for Observation. Preliminary diagnosis dw is Syncope and collapse. Bed requested for Telemetry/MedSurg (observation). Status is Observation. Condition is Stable. Problem is new. Symptoms have improved. UTI on Admission? No. jr8 15:39 15:37 04/18/2018 14:27 Hospitalization Ordered by Milo Singer MD for Observation. dw Preliminary diagnosis is Syncope and collapse. Bed requested for Telemetry/MedSurg (observation). Status is Observation. Condition is Stable. Problem is new. Symptoms have improved. UTI on Admission? No. dw 16:27 15:39 04/18/2018 14:27 Hospitalization Ordered by Milo Singer MD for Observation. tw2 Preliminary diagnosis is Syncope and collapse. Bed requested for Telemetry/MedSurg (observation). Status is Observation. Condition is Stable. Problem is new. Symptoms have improved. UTI on Admission? No. dw
--- NOTE | 2018-04-18 14:27 | ER ---
Nurse's Notes [facility] Name: Moises Kimball Age: 77 yrs Sex: Male : 1940 Arrival Date: 04/18/2018 Time: 10:22 Bed 6 Private MD: Milo Singer V Diagnosis: Syncope and collapse Presentation: 04/18 10:28 Presenting complaint: Patient states: became dizzy and fell just DRAFTER (CAD) ELECTRONIC, falling onto ss ground and striking back of head. Pt reports brief LOC. Care prior to arrival: None. Mechanism of Injury: Fall from standing position. Trauma event details: Injury occurred in the [facility], Injury occurred: at home. Injury occurred: April 18, 2018. 10:28 Acuity: KIP 3 ss 10:28 Method Of Arrival: Wheelchair ss 10:28 Transition of care: patient was not received from another setting of care. Onset of ss symptoms was April 18, 2018. Risk Assessment: Do you want to hurt yourself or someone else? Patient reports no desire to harm self or others. Initial Sepsis Screen: Does the patient meet any 2 criteria? No. Patient's initial sepsis screen is negative. Does the patient have a suspected source of infection? No. Patient's initial sepsis screen is negative. Trauma Activation: Alert Physician: ED Physician; Name: Dr. Lilly; Notified At: 10:23; Arrived At: 10:23 Physician: General Surgeon; Name: ; Notified At: 10:23; Arrived At: Specialty not needed Physician: Radiology; Name: Viviana Hogan; Notified At: 10:23; Arrived At: 10:23 Physician: Respiratory; Name: ; Notified At: 10:23; Arrived At: Specialty not needed Physician: Lab; Name: ; Notified At: 10:23; Arrived At: Specialty not needed Historical: - Allergies: 10:34 Codeine; ss - Home Meds: 10:52 fluticasone 50 mcg/actuation nasal spsn [Active]; loratadine Oral [Active]; tw2 losartan-hydrochlorothiazide 100-12.5 mg Oral tab [Active]; Vitamin C 1,000 mg Oral tab twice a day [Active]; meloxicam 7.5 mg Oral tab 1 tab once daily [Active]; metoprolol tartrate 100 mg Oral tab [Active]; Plavix 75 mg Oral tab [Active]; simvastatin 20 mg Oral tab [Active]; - PMHx: 10:34 Hyperlipidemia; Hypertension; TIA; ss - PSHx: 10:52 back surgery; tw2 - Immunization history: Last tetanus immunization: unknown. - Social history:: Smoking status: Patient/guardian denies using tobacco. - Ebola Screening: : Patient denies exposure to infectious person Patient denies travel to an Ebola-affected area in the 21 days before illness onset. Screenin:23 Abuse screen: Denies threats or abuse. Denies injuries from another. Tuberculosis ss screening: No symptoms or risk factors identified. Never had TB. 10:50 Nutritional screening: No deficits noted. Fall Risk None identified. tw2 Primary Survey: 10:23 A: Airway: patent. Breathing/Chest: Respiratory pattern: regular, Respiratory effort: tw2 spontaneous, unlabored, Breath sounds: clear, bilaterally. Chest inspection: symmetrical rise and fall of the chest. Circulation: Cardiac rhythm: sinus bradycardia Heart tones present. Disability Alert. 11:09 Reassessment Airway Airway Patent Breathing/Chest Respiratory pattern Regular tw2 Respiratory effort Spontaneous Unlabored Breath sounds Clear Chest inspection Symmetrical Circulation Heart rhythm Sinus stephen Heart tones Disability Alert. Assessment: 10:37 General: Appears in no apparent distress. Behavior is calm, cooperative, appropriate tw2 for age. Pain: Complains of pain in left parietal area and right parietal area. Neuro: Level of Consciousness is awake, alert, obeys commands, Oriented to person, place, situation. Cardiovascular: Heart tones S1 S2 Patient's skin is warm and dry. Respiratory: Airway is patent Respiratory effort is even, unlabored, Respiratory pattern is regular, symmetrical, Breath sounds are clear bilaterally. GI: Abdomen is round non-distended, Bowel sounds present X 4 quads. : No signs and/or symptoms were reported regarding the genitourinary system. EENT: No signs and/or symptoms were reported regarding the EENT system. Derm: Skin is intact, is healthy with good turgor. Musculoskeletal: Range of motion: intact in all extremities. Injury Description: Abrasion sustained to left parietal area and right parietal area. 11:08 Reassessment: Patient appears in no apparent distress at this time. No changes from tw2 previously documented assessment. Patient and/or family updated on plan of care and expected duration. Pain level reassessed. Patient is alert, oriented x 3, equal unlabored respirations, skin warm/dry/pink. provider at bedside at this time. 12:30 Reassessment: Patient appears in no apparent distress at this time. No changes from tw2 previously documented assessment. Patient and/or family updated on plan of care and expected duration. Pain level reassessed. Patient is alert, oriented x 3, equal unlabored respirations, skin warm/dry/pink. 13:50 Reassessment: pt in MRI at this time, not available for VS at this time. tw2 14:01 Reassessment: Patient appears in no apparent distress at this time. No changes from tw2 previously documented assessment. Patient and/or family updated on plan of care and expected duration. Pain level reassessed. Patient is alert, oriented x 3, equal unlabored respirations, skin warm/dry/pink. pt back from MRI at this time, no change in mental condition. 15:01 Reassessment: Patient appears in no apparent distress at this time. No changes from tw2 previously documented assessment. Patient and/or family updated on plan of care and expected duration. Pain level reassessed. Patient is alert, oriented x 3, equal unlabored respirations, skin warm/dry/pink. 16:08 Reassessment: Patient appears in no apparent distress at this time. No changes from tw2 previously documented assessment. Patient and/or family updated on plan of care and expected duration. Pain level reassessed. Patient is alert, oriented x 3, equal unlabored respirations, skin warm/dry/pink. Vital Signs: 10:23 BP 166 / 99; Pulse 53; Resp 17; Pulse Ox 98% on R/A; Weight 95.25 kg; Height 5 ft. 10 ss in. (177.80 cm); Pain 1/; 10:49 Temp 97.8(O); tw2 11:08 BP 156 / 85; Pulse 50; Resp 17; Pulse Ox 98% on R/A; tw2 12:32 BP 153 / 88; Pulse 44; Resp 12; Pulse Ox 99% on R/A; tw2 14:01 BP 156 / 99; Pulse 59; Resp 20; Pulse Ox 98% on R/A; tw2 15:00 BP 155 / 99; Pulse 73; Resp 22; Pulse Ox 100% on R/A; tw2 15:39 BP 157 / 94; Pulse 66; Resp 20; Pulse Ox 98% on R/A; tw2 10:23 Body Mass Index 30.13 (95.25 kg, 177.80 cm) ss [place] Coma Score: 10:23 Eye Response: spontaneous(4). Verbal Response: oriented(5). Motor Response: obeys ss commands(6). Total: 15. Trauma Score (Adult): 10:23 Eye Response: spontaneous(1); Verbal Response: oriented(1); Motor Response: obeys ss commands(2); Systolic BP: > 89 mm Hg(4); Respiratory Rate: 10 to 29 per min(4); Cielo Score: 15; Trauma Score: 12 ED Course: 10:22 Patient arrived in ED. rg4 10:23 Milo Singer MD is Private Physician. rg4 10:23 Patient has correct armband on for positive identification. Bed in low position. Call ss light in reach. Side rails up X 1. bus driver/monitor on. Pulse ox on. NIBP on. 10:23 Arm band placed on. cleaned with NS, minimal bleeding noted to abrasion on the back of tw2 the scalp. 10:23 Patient maintains SpO2 saturation greater than 95% on room air. Thermoregulation: warm ss blanket given to patient. 10:24 Pedro Allred PA is PHCP. jr8 10:24 Bobby Lilly MD is Attending Physician. jr8 10:31 Triage completed. ss 10:37 Sissy Lutz RN is Primary Nurse. tw2 11:25 Inserted saline lock: 20 gauge in right antecubital area, using aseptic technique. tw2 Blood collected. 11:[address] via stretcher. Patient moved to radiology. jj2 11:36 CT completed. Patient tolerated procedure well. Patient moved back from CT. jj2 11:37 CT Head Brain wo Cont In Process Unspecified. EDMS 12:17 XRAY Chest (1 view) In Process Unspecified. EDMS 13:35 Patient moved to MRI via stretcher. tw2 13:42 MRI - Brain Wo Cont In Process Unspecified. EDMS 13:56 MRI completed. Patient tolerated well. Patient moved back from MRI. em2 14:26 Milo Singer MD is Hospitalizing Provider. jr8 15:40 Awaiting: attempted to call report per Eloise, principal secretary the nurse didn't know she was tw2 getting a patient she needs a few more minutes. 16:08 No provider procedures requiring assistance completed. Patient admitted, IV remains in tw2 place. Administered Medications: No medications were administered Intake: 10:49 PO: 0ml; Total: 0ml. tw2 Outcome: 14:27 Decision to Hospitalize by Provider. jr8 15:30 Patient's length of stay in the Emergency Department was greater than 2 hours. d/t tw2 admission orderPatient's length of stay extended due to 16:08 Admitted to Med/surg accompanied by tech, via wheelchair, room 403, with chart, Report tw2 called to MARGARITO Weinstein 16:08 Condition: stable 16:08 Instructed on the need for admit. 16:27 Patient left the ED. tw2 Signatures: Dispatcher [employer] EDMS Romel Wilde jj2 Saritha Mensah, RN RN Pedro Allred PA PA jr8 Mike Pena em2 Sissy Lutz RN RN tw2 Jen Brooks rg4 Corrections: (The following items were deleted from the chart) 15:30 15:29 BP 155 / 99; Pulse 73bpm; Resp 22bpm; Pulse Ox 100% RA; tw2 tw2
[2018-04-18] MEDS ORDERED: ACETAMINOPHEN 500 MG TAB PO PRN (16:45)
[2018-04-18] MEDS ORDERED: ONDANSETRON 4 MG/2 ML VIAL IV PRN (16:45)
[2018-04-18 17:11] VITALS: BMI 30.1
--- NOTE | 2018-04-18 17:35 | P.HP ---
Certification for Inpatient Patient admitted to: Observation With expected LOS: <2 Midnights Practitioner: I am a practitioner with admitting privileges, knowledge of patient current condition, hospital course, and medical plan of care. Services: Services provided to patient in accordance with Admission requirements found in Title 42 Section 412.3 of the Code of Federal Regulations Patient History Date of Service: 04/18/18 Reason for admission: PASSED OUT History of Present Illness: MR. ADAMS WHILE WALKING, FOUND HIMSELF HITTING THE CONCRETE FLOOR. HE WAS SOME WHAT LIGHT HEADED BEFORE . HE HAS HAD RECENT ANEURYSM SURGERY BY DOCTORS IN [place], WHO DID NOT SEND ME ANY RECORDS. 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 HE HAD NO SYMPTOMS FROM IT. HE DID WELL WITH SURGERY. HIS HR AT ADMISSION TO ER WAS 44. HE IS ON METORPROLOL AND HE WILL TALKE TO DR. ALICIA ABOUT REDUCTION OF DOSE. Allergies codeine Adverse Reaction (Verified 12/31/16 06:48) hyperactivity Home Medications: Metoprolol Succinate [Toprol Xl*] 100 mg PO DAILY 08/17/13 Simvastatin [Zocor*] 20 mg PO BEDTIME 08/17/13 Ascorbate Calcium [Vitamin C] 1,000 mg PO BID 10/02/14 Fluticasone Propionate [Flonase] 16 gm NS DAILY 10/02/14 Loratadine [Claritin*] 10 mg PO DAILY 10/02/14 Multivitamin [Multivitamins] 1 each PO DAILY 10/02/14 - Past Medical/Surgical History Has patient received pneumonia vaccine in the past: Yes Diabetic: No -: HTN -: Hyperlipidemia -: Prostate problems -: Possible TIA -: hernia SX -: TURP -: micro laminectomy - Social History Smoking Status: Never smoker Alcohol use: No CD- Drugs: No Caffeine use: Yes Place of Residence: Home Review of Systems 10-point ROS is otherwise unremarkable Physical Examination - Vital Signs Temperature: 97.8 F Blood Pressure: 157/94 Pulse: 66 Respirations: 20 - Physical Exam General: Mild distress, Obese HEENT: Atraumatic, PERRLA, Mucous membr. moist/pink, Other (SCALP LACERATION. BLEEDING STOPPED.), EOMI, Sclerae nonicteric Neck: Supple, 2+ carotid pulse no bruit, No LAD, Without JVD or thyroid abnormality Respiratory: Clear to auscultation bilaterally, Normal air movement Cardiovascular: Regular rate/rhythm, Normal S1 S2 Gastrointestinal: Normal bowel sounds, No tenderness Musculoskeletal: No tenderness Integumentary: No rashes Neurological: Normal gait, Normal speech, Normal strength at 5/5 x4 extr, Normal tone, Normal affect Lymphatics: No axilla or inguinal lymphadenopathy - Studies Laboratory Data (last 24 hrs) 04/18/18 13:10: PT 12.3, INR 1.04 04/18/18 13:10: Sodium 136, Potassium 4.0, BUN 17, Creatinine 0.90, Glucose 88, Magnesium 2.5 H, Total Bilirubin 0.8, AST 19, ALT 22, Alkaline Phosphatase 95 04/18/18 11:25: WBC 5.2, Hgb 16.3, Hct 47.8, Plt Count 201 Assessment and Plan - Problems (Diagnosis) (1) Syncope Current Visit: Yes Status: Acute Plan: NO SIGNS OF [place], OR STROKE ON MRI. THIS CAN BE FROM ORTHOSTASIS OR BRADYCARDIA FROM METOPROLOL. HE WILL TALK TO DR ALICIA. VERTIGO IS LESS LIKELY , WILL GIVE MECLIZINE TO TRY. - Advance Directives Does patient have a Living Will: No Does patient have a Durable POA for Healthcare: No
[2018-04-18] MEDS ORDERED: INFLUENZA VACCINE (for 3y+) 0.5 ML DOSE IMVAC ONE (18:00)
[2018-04-18] MEDS: MECLIZINE HCL 12.5 MG TAB PO SCH (21:02)
[2018-04-19 06:39] LABS: Absolute Lymphocytes (CBC) 1.1 K/uL (0.7-4.9); Absolute Monocytes 0.7 K/uL (0.1-1.3); Absolute Neutrophil 2.3 K/uL (1.8-8.0); Hematocrit 45.9 % (39.6-49.0); Lymphocytes % 25.3 % (15.3-44.8); MCH 30.9 pg (27.0-35.0); MCV 90.9 fL (80-100); MPV 8.1 fL (7.6-11.3); Monocytes % 15.4 % (3.3-12.3); RBC Red Blood Cell Count 5.05 M/uL (4.33-5.43)
[2018-04-19 06:57] LABS: Potassium 3.9 mmol/L (3.5-5.1)
[2018-04-19] MEDS: MECLIZINE HCL 12.5 MG TAB PO SCH (07:54)
[2018-04-19 09:08] LABS: Blood Morphology Comment NOT SEEN (NOT SEEN); Platelet Estimate ADEQ; Urine White Blood Cell Casts OK
[2018-04-19 09:14] VITALS: BP 138/81; TEMP 99
[2018-04-19 10:33] VITALS: O2SAT 95
--- NOTE | 2018-04-19 10:45 | EKG ---
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
[2018-04-19] MEDS ORDERED: INFLUENZA VACCINE (for 3y+) 0.5 ML DOSE IMVAC ONE (11:00)
--- NOTE | 2018-04-19 17:29 | P.DS ---
Admission Date: 04/18/18 Discharge Date: 04/19/18 Disposition: ROUTINE DISCHARGE Discharge Condition: FAIR Reason for Admission: PASSED OUT - Problems (1) Syncope Onset Date: 04/19/18 Status: Acute Brief History of Present Illness: MR. ADAMS WHILE WALKING, FOUND HIMSELF HITTING THE CONCRETE FLOOR. HE WAS SOME WHAT LIGHT HEADED BEFORE . HE HAS HAD RECENT ANEURYSM SURGERY BY DOCTORS IN [place], WHO DID NOT SEND ME ANY RECORDS. 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 HE HAD NO SYMPTOMS FROM IT. HE DID WELL WITH SURGERY. HIS HR AT ADMISSION TO ER WAS 44. HE IS ON METORPROLOL AND HE WILL TALKE TO DR. JOHNSON ABOUT REDUCTION OF DOSE. MR. ADAMS, I THINK HAD AN ORTHOSATIC SYNCOPE OR NEAR SYNCOPE. HE HAD LOW BP THIS AM. I ADVISED HIM ABOUT THIS AND ASKED TO SPACE THE MEDICINES OR EVEN REDUCE LOSARTAN AND HCTZ. HE IS GOING TO TALK TO HIS OTHER DOCTORS AND DECIDE. HE IS STABLE TO GO HOME. Vital Signs/Physical Exam: Temp Pulse Resp BP Pulse Ox 99.0 F 60 16 138/81 97 04/19/18 08:00 04/19/18 08:00 04/19/18 08:00 04/19/18 08:00 04/19/18 08:00 Laboratory Data at Discharge: WBC 4.3 K/uL (4.3-10.9) D 04/19/18 06:23 Hgb 15.6 g/dL (13.6-17.9) 04/19/18 06:23 Hct 45.9 % (39.6-49.0) 04/19/18 06:23 Plt Count 205 K/uL (152-406) 04/19/18 06:23 PT 12.3 SECONDS (9.5-12.5) 04/18/18 13:10 INR 1.04 04/18/18 13:10 Sodium 137 mmol/L (136-145) 04/19/18 06:23 Potassium 3.9 mmol/L (3.5-5.1) 04/19/18 06:23 BUN 15 mg/dL (7-18) 04/19/18 06:23 Creatinine 0.90 mg/dL (0.55-1.3) 04/19/18 06:23 Glucose 97 mg/dL (74-106) 04/19/18 06:23 Magnesium 2.5 mg/dL (1.8-2.4) H 04/18/18 13:10 Total Bilirubin 0.8 mg/dL (0.2-1.0) 04/18/18 13:10 AST 19 U/L (15-37) 04/18/18 13:10 ALT 22 U/L (12-78) 04/18/18 13:10 Alkaline Phosphatase 95 U/L (45-117) 04/18/18 13:10 Troponin I < 0.02 ng/mL (0.0-0.045) 04/18/18 20:35 Home Medications: Simvastatin [Zocor*] 20 mg PO BEDTIME 08/17/13 Losartan Potassium 50 mg PO DAILY 04/18/18 Metoprolol Tartrate [Lopressor] 50 mg PO BID 04/18/18 hydroCHLOROthiazide [Hydrodiuril] 25 mg PO DAILY 04/18/18 Patient Discharge Instructions: Holden, I think your BP fluctuates from high normal to low normal. This drop in 40 mm. of Hg. is called orthostasis. This is common reason for many patients to get dizzy or pass out. Take this to Dr. Johnson and other doctors. I recommend spacing out the medications and not take Metoprolol and others together. Take BP before meds and do not take Losartan or HCTZ if your systolic BP is less than 120 mm of hg. I will see you in two weeks. Diet: AHA Followup: Milo Singer MD [Primary Care Provider] -
== END 2018-04-19 11:00 | disposition home or self-care (01) ==
LOC: ER 10:22 → ERHOLD 14:28 → 4TH 16:10
PROVIDERS: ADMIT Internal Medicine; ATTEND Internal Medicine
DX: R55 Syncope and collapse (principal); I10 Essential (primary) hypertension; E78.5 Hyperlipidemia, unspecified; S01.01XA Laceration without foreign body of scalp, initial encounter; W18.39XA Other fall on same level, initial encounter; Y92.009 Unspecified place in unspecified non-institutional (private) residence as the place of occurrence of the external cause; Z23 Encounter for immunization
CPT/HCPCS: 36415; 70450; 70551; 71045; 80048 ×2; 80076; 82962; 83735; 83880; 84484 ×3; 85025 ×2; 85610; 93005 ×2; 99285; G0008; G0378 ×2; Q2035

== ENCOUNTER 2020-09-16 08:21 | Day surgery (SDC) | payer OTHER ==
[2020-09-15 15:50] LABS: Absolute Lymphocytes (CBC) 1.6 K/uL (0.7-4.9); Basophils % 1.2 % (0-1.3); Hematocrit 49.9 % (39.6-49.0); Lymphocytes % 28.1 % (15.3-44.8); MPV 8.4 fL (7.6-11.3); RBC Red Blood Cell Count 5.24 M/uL (4.33-5.43)
[2020-09-15 16:04] LABS: Potassium 4.9 mmol/L (3.5-5.1)
--- NOTE | 2020-09-15 16:38 | RAD REPORT ---
EXAM DESCRIPTION: RAD - Chest Pa And Lat (2 Views) - 09/15/2020 4:18 pm CLINICAL HISTORY: pre op Chest pain. COMPARISON: Chest Single View dated 04/18/2018; Chest Pa And Lat (2 Views) dated 12/17/2015; CHEST SING LE VIEW dated 08/16/2013; CHEST PA AND LAT 2 VIEW dated 08/05/2011 FINDINGS: The lungs are mildly emphysematous but clear. The heart is upper limit normal in size. No displaced fractures.
[2020-09-16] MEDS ORDERED: Ringers Lactate 1,000 ML IV ONE (09:03)
[2020-09-16] MEDS ORDERED: CEFAZOLIN/SWI 1gm 1 GM/10 ML SYR ONE (09:03)
[2020-09-16] MEDS ORDERED: propofoL 200 MG/20 ML VIAL IV ONE (09:34)
[2020-09-16] MEDS ORDERED: LIDOCAINE 1% MPF 5 ML VIAL ONE (09:34)
[2020-09-16] MEDS ORDERED: MIDAZOLAM HCL 2 MG/2 ML INJ ONE (09:34)
[2020-09-16] MEDS ORDERED: FENTANYL CITR 100 MCG/2 ML ONE (09:34)
[2020-09-16] MEDS ORDERED: ONDANSETRON 4 MG/2 ML VIAL ONE (11:03)
[2020-09-16] MEDS ORDERED: KETOROLAC 30 MG/ML INJ ONE (11:03)
[2020-09-16] MEDS ORDERED: NS 0.9% VIAL 10 ML ONE (11:06)
[2020-09-16] MEDS ORDERED: EPHEDRINE SULF 50 MG/ML VIAL ONE (11:06)
[2020-09-16 11:33] VITALS: O2SAT 100
--- NOTE | 2020-09-16 12:30 | EKG ---
Test Date: 2020-09-15 Test Time: 15:44:30 Restrike Hammer Operator: TG MEASUREMENT RESULTS: Intervals: Rate: 44 [place]: 256 QRSD: 146 QT: 482 QTc: 412 [place]: P: 8 [place]: 256 QRS: -90 T: 17 INTERPRETIVE STATEMENTS: Marked sinus bradycardia with 1st degree AV block Right bundle branch block Inferior infarct, age undetermined Anterolateral infarct, age undetermined Abnormal ECG Compared to ECG 04/19/2018 07:25:51 No significant changes Electronically Signed On 09-16-20 12:27:50 ORGAN RECOVERY COORDINATOR by Dawood Sharpe
[2020-09-16 12:59] VITALS: BP 125/62; TEMP 97
--- NOTE | 2020-09-16 15:07 | OP ---
Date of Procedure: 09/16/2020 Surgeon: Troy Winston MD Monument Installer: None. Preoperative Diagnosis: Right back mass. Postoperative Diagnosis: Right back mass. Procedure: Wide excision of right back mass, 8 x 4 cm with layered closure. Estimated Blood Loss: Minimal. Specimen: Right back mass, inflamed sebaceous cyst. Findings: As above. Anesthesia: General. Complications: None. Disposition: The patient tolerated the procedure in stable condition and taken to Recovery in good g eneral condition. Procedure In Detail: The patient was brought to the OR and placed in supine position. General anest hesia begun. The patient was placed in left lateral position, prepped and draped in the usual steril e fashion. Marcaine 0.5% was infiltrated locally. A 15 blade was used to make an 8 x 4 cm incision to excise this entire 4 x 6 cm inflamed mass. Subcutaneous tissue was divided excised and sent to Pathology as specimen. Wound irrigated. Bleeding controlled with cautery. Flaps created a nd then 0 chromic and 2-0 chromic were used for subcutaneous tissue and 2-0 nylon used to close skin. Sterile dressing was applied. The patient was awakened and taken to Recovery in good general condi tion. Discharge Note: The patient will go to Day Surgery and home when stable. Disposition: Home. Condition: Stable. Discharge Instructions: Resume home medications and diet. Activity as tolerated. No heavy lifting. Remove outer dressing in 2 days. Shower. Keep wound clean and dry. Follow up in my office in 2 w eeks. Call for appointment. Ultracet 1 tablet p.o. q.4 p.r.n. pain, Bactrim DS . /MODL Voice ID: [id number] Report ID: [id number]
== END 2020-09-16 12:30 | disposition home or self-care (01) ==
LOC: OR 08:21
PROVIDERS: ATTEND Surgery
PROC: 0JB70ZZ Excision of Back Subcutaneous Tissue and Fascia, Open Approach (ICD-10-PCS; principal; 2020-09-16 09:30)
DX: L72.0 Epidermal cyst (principal); Z20.822 Contact with and (suspected) exposure to COVID-19
CPT/HCPCS: 93005; 85025; 80048; 36415; 88304; 71046; 11406; U0003; J2704; J3010; J0690; J7120; J2405; 88305; J2250